=== PATIENT | female | born 1990 | race African-American/Black ===

== ENCOUNTER 2022-09-14 21:37 | Emergency (ER) | payer MEDICAID, SELFPAY ==
[2022-09-14 21:44] VITALS: BP 141/95; PULSE 79; RESP 16; TEMP 36.6; O2SAT 98; BMI 28.3
--- NOTE | 2022-09-17 07:15 | ED.SKABFB ---
HPI - Skin/Abscess/Foreign Bdy General Chief complaint: Skin/Abscess/Foreign Body Stated complaint: Reoccuring hives on neck/head Time Seen by Provider: 09/14/22 22:11 History of Present Illness HPI narrative: 32-year-old young woman presenting to the emergency department with concern of itchy rash somewhat generalized that has been recurring over the last 3 weeks. She is 4 months . Is breast-feeding. Sounds like this is going well. Has been trying diphenhydramine for this rash and does appear to control things. Recurred again today about 30 minutes prior to arrival in the emergency department. She has no sensation of throat tightness or closure or difficulty breathing. There are no particular exposures. She has been eliminating some things in her diet it sounds like in an effort to identify a potential cause. No history of asthma or particular allergies. No fevers. No nausea. Related Data Home Medications Medication Instructions Recorded Confirmed vit no.95-ferrous 1 tab PO DAILY 09/14/22 09/14/22 fumarate 28 mg-folic acid 800 mcg tablet ( Multivitamins) Allergies Allergy/AdvReac Type Severity Reaction Status Date / Time No Known Drug Allergies Allergy Verified 09/14/22 21:43 Review of Systems Status of ROS: Reports: 6 or more systems reviewed and unremarkable except as noted in History and below PFSH PFS Social History Smoking Status: Never smoker Do you use any of these nicotine containing products: None Second hand tobacco smoke exposure: No How often do you have a drink containing alcohol: never How often do you have six or more drinks on one occasion: Never AUDIT-C Alcohol total score: 0 Non-prescribed substance use: denies use service: No Exam Narrative: Exam Narrative: Pleasant. NAD. Breathing easily. Oropharynx is moist, otherwise unremarkable. Neck supple without lymphadenopathy. Lungs are clear. Heart with regular rate and rhythm without murmur rub or gallop. Was scratching little bit is I enter the room. Skin is warm and dry. I do not see or care eruptions at this point. There is some mild erythema at the right antecubital fossa. Other areas that seemed to have been involved also the legs. No edematous change or erythema otherwise of the skin. Const: Documenting provider has reviewed patient's vital signs: yes Course Vital Signs Vital signs: Initial Vital Signs Temperature 97.9 F 09/14/22 21:44 Temperature Source Temporal Artery Scan 09/14/22 21:44 Pulse Rate 79 09/14/22 21:44 Respiratory Rate 16 09/14/22 21:44 Blood Pressure 141/95 H 09/14/22 21:44 Blood Pressure Mean 110 09/14/22 21:44 Pulse Oximetry 98 09/14/22 21:44 Oxygen Delivery Method Room Air 09/14/22 21:44 Vital Signs Temperature 97.9 F 09/14/22 21:44 Pulse Rate 79 09/14/22 21:44 Respiratory Rate 16 09/14/22 21:44 Blood Pressure 141/95 H 09/14/22 21:44 Pulse Oximetry 98 09/14/22 21:44 Oxygen Delivery Method Room Air 09/14/22 21:44 Temperature 97.9 F 09/14/22 21:44 Pulse Rate 79 09/14/22 21:44 Respiratory Rate 16 09/14/22 21:44 Blood Pressure 141/95 H 09/14/22 21:44 Pulse Oximetry 98 09/14/22 21:44 Oxygen Delivery Method Room Air 09/14/22 21:44 MDM - Skin/Abscess/Foreign Bdy MDM Narrative Medical decision making narrative: There is subtle evidence of urticaria. Consistent with history as well. Unclear etiology though. No other alarming signs here on physical exam. I propose treating initially with course of prednisone. May require further laboratory investigation or diet diary. See patient discharge plan Discharge Plan Discharge Clinical Impression: Urticaria Patient Disposition: Home, Self-Care Condition: Stable Instructions: Urticaria (ED) Additional Instructions: Focus on hydration. Can use topical hydrocortisone if seems to help. Can take diphenhydramine for breakthrough itch. Famotidine could be a less sedating option longer-term but less effective for acute flares perhaps. Prednisone from [facility]. Take the prednisone as 40 mg daily for 3 days, then 20 mg daily for 4 days. Each of these doses you can split into morning and evening. I only said this because sometimes the half of the day where you do not take the medication you might feel more itch/have more hives. If once in the morning is effective you can take the entire dose at once. Return for any indication of breathing, sensation of throat tightness. Prescriptions: No Action PNV cmb#95-ferrous fumarate-FA [ Multivitamins] 28 mg iron- 800 mcg tablet 1 tab PO DAILY Stand Alone Forms: [employer] Info Instructions
== END 2022-09-14 23:48 | disposition home or self-care (01) ==
LOC: ED 23:34
PROVIDERS: Emergency Provider Family Medicine
DX: L50.9 Urticaria, unspecified (principal)
CPT/HCPCS: 99282; 99283

== ENCOUNTER 2023-07-06 19:24 | Emergency (ER) | payer MEDICAID, SELFPAY ==
[2023-07-06 19:32] VITALS: BP 149/94; PULSE 76; RESP 14; TEMP 36.8; O2SAT 94; BMI 30.2
[2023-07-06 19:44] LABS: Appearance Urine Cloudy (Clear); Bilirubin Urine Negative (Negative); Blood Urine 3+ (Negative); Color Urine Red (Yellow); Glucose Urine Negative (Negative); Ketones Urine Negative (Negative); Leukocyte Esterase Urine 1+ (Negative); Nitrite Urine Negative (Negative); Protein Urine 1+ (Negative); Urobilinogen Urine 0.2 (0.2-1.0); pH Urine 7.5 (5.0-8.5)
--- NOTE | 2023-07-06 19:48 | ED.ABDPAIN ---
HPI - Abdominal Pain General Time Seen by Provider: 19:48 Date Seen: 07/06/23 Chief Complaint: Abdominal Pain Stated Complaint: Sharp shooting abdmoninal pain-worse after eat Time Seen by Provider: 07/06/23 19:30 Source: patient, RN notes reviewed and old records reviewed Mode of arrival: ambulatory Limitations: no limitations History of Present Illness HPI narrative: 32-year-old female who comes in today with right-sided abdominal pain. This is been going on for 3 days. She says there is a dull ache in the right lower quadrant when she eats it radiates up to the right upper quadrant. No nausea vomiting. Says she has had diarrhea since she had her gallbladder removed. Prior up cholecystectomy as well. Denies any blood in the stools. Mild dysuria. Currently menstruating, denies possibility of . Related Data Home Medications Medication Instructions Recorded Confirmed vit no.95-ferrous 1 tab PO DAILY 09/14/22 09/14/22 fumarate 28 mg-folic acid 800 mcg tablet ( Multivitamins) Previous Rx's Medication Instructions Recorded cefdinir 300 mg capsule 300 mg PO BID #10 caps 07/06/23 Allergies Allergy/AdvReac Type Severity Reaction Status Date / Time No Known Drug Allergies Allergy Verified 07/06/23 19:38 Review of Systems Status of ROS Reports: 10 or more systems reviewed and unremarkable except as noted in History and below [facility] Social History Smoking Status: Never smoker Do you use any of these nicotine containing products: None Second hand tobacco smoke exposure: No How often do you have a drink containing alcohol: never How often do you have six or more drinks on one occasion: Never AUDIT-C Alcohol total score: 0 Non-prescribed substance use: denies use service: No Exam Narrative: Exam Narrative: General: Well-developed and well-nourished, no acute distress Head: Atraumatic and normocephalic Eyes: Pupils are equal reactive, extraocular motions intact, conjunctiva clear ENT: External nose and ears are normal, posterior pharynx without erythema or exudate Neck: No midline cervical tenderness, full spontaneous range of motion the neck, trachea midline, no adenopathy Heart: Regular rate and rhythm no murmurs or thrills Lungs: Clear to auscultation bilaterally without wheezes or crackles Abdomen: Soft, nontender, nondistended with active bowel sounds Musculoskeletal: No tenderness, deformity, or edema Neurologic: Awake, alert, and oriented x3, no gross focal neurologic deficits, cranial nerves intact as tested Psych: Mood and affect are appropriate Skin: No rashes Const: Vital Signs, click to edit/add: Vital Signs - 24 hr 07/06/23 19:32 Temperature 98.3 F Pulse Rate [Right Pulse Oximeter] 76 Respiratory Rate 14 Blood Pressure [Ri ght Upper Arm] 149/94 H Pulse Oximetry 94 Oxygen Delivery Me thod Room Air Course Course ED Course: Patient seen and examined, prior records are reviewed. Patient complains of right-sided abdominal pain, dull the most part but gets worse, sharp and radiating to the right upper quadrant after she eats. On exam here, comfortable with stable vital signs, no abdominal tenderness. Symptoms seem most consistent with a mono colitis, prior appendectomy and cholecystectomy so likelihood of right-sided intra-abdominal surgical emergency is low. Consider ovarian cyst as well. Labs ordered, consider CT based on lab findings and clinical course. Reevaluation(s) Time of Reevaluation #1: 20:19 Reevaluation #1: Labs ordered and independently interpreted by me, normal CBC. Urinalysis with blood but large number white cells relative to number of red cells, patient is menstruating but concern for possible infection. With hematuria without large number cells, this could represent upper tract bleeding such as from a stone. CT scan is ordered. Time of Reevaluation #2: 21:12 Reevaluation #2: CT scan independently interpreted by me does not demonstrate any ureteral calculus, hydronephrosis, hydroureter. Move use of will bladder wall thickening which in conjunction with urinalysis is consistent with urinary tract infection. Patient was started on Omnicef for this and discharged. Vital Signs Vital signs: Initial Vital Signs Temperature 98.3 F 07/06/23 19:32 Temperature Source Temporal Artery Scan 07/06/23 19:32 Pulse Rate 76 07/06/23 19:32 Pulse Rhythm Regular 07/06/23 19:32 Pulse Strength 3+ Normal 07/06/23 19:32 Respiratory Rate 14 07/06/23 19:32 Blood Pressure 149/94 H 07/06/23 19:32 Blood Pressure Mean 112 H 07/06/23 19:32 Blood Pressure Position Sitting 07/06/23 19:32 Pulse Oximetry 94 07/06/23 19:32 Oxygen Delivery Method Room Air 07/06/23 19:32 Vital Signs Temperature 98.3 F 07/06/23 19:32 Pulse Rate 76 07/06/23 19:32 Respiratory Rate 14 07/06/23 19:32 Blood Pressure 149/94 H 07/06/23 19:32 Pulse Oximetry 94 07/06/23 19:32 Oxygen Delivery Method Room Air 07/06/23 19:32 Temperature 98.3 F 07/06/23 19:32 Pulse Rate 76 07/06/23 19:32 Respiratory Rate 14 07/06/23 19:32 Blood Pressure 149/94 H 07/06/23 19:32 Pulse Oximetry 94 07/06/23 19:32 Oxygen Delivery Method Room Air 07/06/23 19:32 MDM - Abdominal Pain Lab Data Labs: Lab Results 07/06/23 07/06/23 Range/Units 19:34 20:02 WBC 5.94 (4.50-11.00) K/uL RBC 4.76 (4.00-5.20) m/uL Hgb 12.7 (12.0-16.0) gm/dL Hct 38.6 (33.0-51.0) % MCV 81 (80-100) fL MCH 27 (26-34) pg MCHC 33 (32-36) gm/dL RDW Coeff of Lana 12.7 (11.5-15.5) % Plt Count 216 (140-440) K/uL Neut % (Auto) 41.4 L (42.0-72.0) % Lymph % (Auto) 48.1 H (20-44) % [place] % (Auto) 6.4 (0.0-11.0) % Eos % (Auto) 3.9 (0.0-7.0) % Baso % (Auto) 0.2 (0.0-3.0) % Neut # (Auto) 2.50 (1.7-7.0) K/uL Lymph # (Auto) 2.90 (0.90-2.90) K/uL [place] # (Auto) 0.40 (0.00-0.90) K/UL Eos # (Auto) 0.23 (0.00-0.50) K/uL Baso # (Auto) 0.01 (0.00-0.30) K/uL Abs Immat Gran (auto) 0.00 (0.00-0.30) K/uL Imm/Tot Granulo (auto) 0.0 % Sodium 141 (135-149) mmol/L Potassium 3.2 L (3.6-5.1) mmol/L Chloride 107 (96-114) mmol/L Carbon Dioxide 28 (20-32) mmol/L Anion Gap 6 L (7-15) mEq/L BUN 12 (5-24) mg/dL Creatinine 0.6 (0.5-1.5) mg/dL Estimated Creat Clear 102.52 Estimated GFR 123 ml/min Glucose 107 (60-115) mg/dL Calcium 9.4 (8.4-10.6) mg/dL Total Bilirubin 0.2 (0.1-1.5) mg/dL Direct Bilirubin 0.0 (0.0-0.5) mg/dL AST 31 (12-35) U/L ALT 34 (4-35) U/L Alkaline Phosphatase 54 (40-150) U/L C-Reactive Protein 0.6 (0.5-1.0) mg/dL Total Protein 8.3 (6.0-8.3) g/dL Albumin 4.6 (3.3-5.0) g/dL Lipase 99 (23-300) U/L Urine Color Red A (Yellow) Urine Appearance Cloudy A (Clear) Urine pH 7.5 (5.0-8.5) Ur Specific Weinert 1.020 (1.000-1.030) Urine Protein 1+ A (Negative) Urine Glucose (UA) Negative (Negative) Urine Ketones Negative (Negative) Urine Blood 3+ A (Negative) Urine Nitrite Negative (Negative) Urine Bilirubin Negative (Negative) Urine Urobilinogen 0.2 (0.2-1.0) Ur Leukocyte Esterase 1+ A (Negative) Urine RBC 2-5 A (0-2) Urine WBC 25-50 A (0-5) Ur Squamous Epith Cells Few (None-Few) Urine Bacteria Few A (None) Discharge Plan Discharge Clinical Impression: UTI (urinary tract infection), uncomplicated Patient Disposition: Home, Self-Care Condition: Stable Instructions: Urinary Tract Infection in Women (DC) Additional Instructions: Take antibiotics as prescribed starting tomorrow Activity Level: No Restrictions Discharge Diet: Regular Prescriptions: New cefdinir 300 mg capsule 300 mg PO BID Qty: 10 0RF No Action PNV cmb#95-ferrous fumarate-FA [ Multivitamins] 28 mg iron- 800 mcg tablet 1 tab PO DAILY Follow Up/Referrals: Provider,Not a Local [Primary Care Provider] - Stand Alone Forms: [employer] Info Instructions
[2023-07-06 19:59] LABS: Bacteria Urine Few; Squamous Epithelial Cell Urine Few (None-Few); WBC Urine 25-50 (0-5)
[2023-07-06 20:11] LABS: Basophils Absolute Auto 0.01 K/uL (0.00-0.30); Basophils Percent Auto 0.2 % (0.0-3.0); Eosinophils Absolute Auto 0.23 K/uL (0.00-0.50); Eosinophils Percent Auto 3.9 % (0.0-7.0); Hematocrit 38.6 % (33.0-51.0); Hemoglobin* 12.7 gm/dL (12.0-16.0); Lymphocytes Percent Auto 48.1 % (20-44); Mean Corpuscular HGB Conc 33 gm/dL (32-36); Mean Corpuscular Hemoglobin 27 pg (26-34); Mean Corpuscular Volume 81 fL (80-100); Monocytes Percent Auto 6.4 % (0.0-11.0); Neutrophils Percent Auto 41.4 % (42.0-72.0); Platelet Count* 216 K/uL (140-440); RDW Coefficient of Variation % 12.7 % (11.5-15.5); Red Blood Count 4.76 m/uL (4.00-5.20); White Blood Count* 5.94 K/uL (4.50-11.00)
--- NOTE | 2023-07-06 20:11 | CRLHL7_ITS ---
For Patients: As a result of the Century Cures Act, medical imaging exams and procedure reports are released immediately into your electronic medical record. You may view this report before your referring provider. If you have questions, please contact your health care provider. INDICATION: Right abdominal pain, hematuria, question ureteral stone. TECHNIQUE: CT of the abdomen and pelvis acquired without intravenous contrast. Coronal and sagittal reconstructions. COMPARISON: None. FINDINGS: Liver: Unremarkable. Gallbladder and bile ducts: Cholecystectomy. No biliary dilation. Spleen: Unremarkable. Pancreas: Unremarkable. Adrenal glands: Unremarkable. Kidneys, Ureters, and Bladder: No hydronephrosis or ureteral dilation. No obstructing urinary calculi identified. Mild circumferential bladder wall thickening. Reproductive structures: Unremarkable. GI tract/Peritoneum: No small bowel dilation. Moderate amount of stool throughout the colon. The appendix is not identified, and there are surgical clips in the right lower quadrant suggesting prior appendectomy. Trace free fluid in pelvis is likely physiologic. No intraperitoneal free air. Vasculature: Abdominal aorta is normal in caliber. Lymph nodes: No lymphadenopathy. Abdominal wall: Rectus diastasis. Scarring in the lower anterior abdominal wall. Bones: Small sclerotic lesion in the L1 vertebral body likely represents a bone island. Lower chest: Unremarkable. IMPRESSION: 1. No hydronephrosis or obstructing urinary calculi. 2. Mild bladder wall thickening. Correlate with urinalysis. 3. No other acute findings in the abdomen or pelvis on this noncontrast exam. Please note that all CT scans at this facility use dose modulation, iterative reconstruction, and/or weight-based dosing when appropriate to reduce radiation dose to as low as reasonably achievable. Dictated by Jenny Morse MD @ 07/06/2023 9:11:57 PM (Electronically Signed)
[2023-07-06 20:17] LABS: Slide Review Reflex No
[2023-07-06 20:24] LABS: Chloride* 107 mmol/L (96-114); Potassium* 3.2 mmol/L (3.6-5.1); Sodium* 141 mmol/L (135-149)
[2023-07-06 20:25] LABS: Albumin* 4.6 g/dL (3.3-5.0)
[2023-07-06 20:27] LABS: Anion Gap 6 mEq/L (7-15); Blood Urea Nitrogen* 12 mg/dL (5-24); Carbon Dioxide* 28 mmol/L (20-32); Creatinine* 0.6 mg/dL (0.5-1.5); Est. Creatinine Clearance* 102.52; Estimated Glomerular Filt Rate 123 ml/min
[2023-07-06 20:28] LABS: Alkaline Phosphatase* 54 U/L (40-150); Aspartate Amino Transferase* 31 U/L (12-35); Bilirubin Total* 0.2 mg/dL (0.1-1.5); Calcium* 9.4 mg/dL (8.4-10.6); Glucose* 107 mg/dL (60-115); Lipase* 99 U/L (23-300); Total Protein* 8.3 g/dL (6.0-8.3)
[2023-07-06 20:29] LABS: Alanine Aminotransferase* 34 U/L (4-35)
[2023-07-06 20:31] LABS: C Reactive Protein* 0.6 mg/dL (0.5-1.0)
== END 2023-07-06 21:33 | disposition home or self-care (01) ==
PROVIDERS: Emergency Provider Family Medicine
DX: N39.0 Urinary tract infection, site not specified (principal)
CPT/HCPCS: 36415; 74176; 80048; 80076; 81001; 81025; 83690; 85025; 86140; 87086; 87186; 99284

== ENCOUNTER 2024-03-10 17:49 | Emergency (ER) | payer OTHER, SELFPAY ==
[2024-03-10 17:55] VITALS: BP 120/81; PULSE 84; RESP 14; TEMP 37.1; O2SAT 97; BMI 29.3
--- NOTE | 2024-03-10 18:08 | ED.GENADULT ---
HPI - General Adult General Chief complaint: Cough Stated complaint: Cough, short of breath Time Seen by Provider: 03/10/24 17:51 History of Present Illness HPI narrative: This 33-year-old female comes in reporting persistent cough with associated chest pain when taking a deep breath and coughing. She was diagnosed with COVID about a week ago and states that her symptoms began about 10 days ago. She arrives here with normal vital signs. She states that she has been taking Mucinex for an attempt to relieve her persistent cough. Related Data Previous Rx's ?Medication ?Instructions ?Recorded acetaminophen 300 mg-codeine 30 mg 1 tab PO Q6H PRN pain #15 tabs 03/10/24 tablet methylprednisolone 4 mg tablets in See Rx Instructions PO .COMPLEX 03/10/24 a dose pack (Medrol (Ricky)) #21 ea Allergies Allergy/AdvReac Type Severity Reaction Status Date / Time No Known Drug Allergies Allergy Verified 03/10/24 17:54 Review of Systems Status of ROS: Reports: 10 or more systems reviewed and unremarkable except as noted in History and below Narrative: Constitutional: No fevers, no weight gain or loss. Eyes: No discharge. No vision changes. HENT: No congestion, no sore throat, no ear pain. Cardiovascular: No palpitations. Respiratory: No shortness of breath, no wheezes. Frequent nonproductive cough. Gastrointestinal: No abdominal pain, no vomiting, no diarrhea. Genitourinary: No dysuria, no hematuria. Musculoskeletal: Normal range of motion. Skin: No rashes, no pruritis. Neurological: No dizziness, weakness, sensory change, speech change. Endo/Heme/Allergies: No bruising or bleeding. No polydipsia. Pysch: no suicidality, no anxiety, no insomnia. All other systems reviewed and are negative. [facility] Social History Smoking Status: Never smoker Do you use any of these nicotine containing products: None Second hand tobacco smoke exposure: No How often do you have a drink containing alcohol: never How often do you have six or more drinks on one occasion: Never AUDIT-C Alcohol total score: 0 Non-prescribed substance use: denies use service: No Exam Narrative: Exam Narrative: Constitutional: Well-developed, well-nourished, no acute distress. HEENT: Normocephalic, atraumatic. Neck: Normal range of motion. Nontender. Supple. Heart: Regular. No murmurs. Normal rate. Intact distal pulses. Lungs: Clear to auscultation. No chest discomfort. No wheezes, rhonchi, or rales. Abdomen: Normal bowel sounds. Nontender. No rebound tenderness. Genitalia: Deferred. Back: No midline tenderness. Normal range of motion. Extremities: Normal range of motion. No injury. Skin: Intact. No rash. Warm. No erythema or pallor. Neurologic: No altered sensation. No weakness. Alert and oriented. Psychiatric: No suicidality. No anxiety or depression. No insomnia. Nursing notes and vitals signs are reviewed. Const: Vital Signs, click to edit/add: Vital Signs - 24 hr 03/10/24 17:55 Temperature 98.7 F Pulse Rate [Pulse Oximeter] 84 Respiratory Rate 14 Blood Pressure [Ri ght Upper Arm] 120/81 Pulse Oximetry 97 Oxygen Delivery Me thod Room Air Course Vital Signs Vital signs: Initial Vital Signs Temperature 98.7 F 03/10/24 17:55 Temperature Source Temporal Artery Scan 03/10/24 17:55 Pulse Rate 84 03/10/24 17:55 Pulse Rhythm Regular 03/10/24 17:55 Respiratory Rate 14 03/10/24 17:55 Blood Pressure 120/81 03/10/24 17:55 Blood Pressure Mean 94 03/10/24 17:55 Blood Pressure Position Sitting 03/10/24 17:55 Pulse Oximetry 97 03/10/24 17:55 Oxygen Delivery Method Room Air 03/10/24 17:55 Vital Signs Temperature 98.7 F 03/10/24 17:55 Pulse Rate 84 03/10/24 17:55 Respiratory Rate 14 03/10/24 17:55 Blood Pressure 120/81 03/10/24 17:55 Pulse Oximetry 97 03/10/24 17:55 Oxygen Delivery Method Room Air 03/10/24 17:55 Temperature 98.7 F 03/10/24 17:55 Pulse Rate 84 03/10/24 17:55 Respiratory Rate 14 03/10/24 17:55 Blood Pressure 120/81 03/10/24 17:55 Pulse Oximetry 97 03/10/24 17:55 Oxygen Delivery Method Room Air 03/10/24 17:55 Medical Decision Making MDM Narrative Medical decision making narrative: This patient comes in with persistent cough related to COVID infection. She has a normal exam and vital signs are normal. I did discuss the option of doing labs and imaging but in a process of shared decision making this was declined for now. The patient did receive prescription for Medrol Dosepak and Tylenol 3 for symptomatic relief. Discharge Plan Discharge Clinical Impression: COVID-19 Patient Disposition: Home, Self-Care Condition: Unchanged Additional Instructions: Take medications as needed and directed. Use [id number] medicines also as directed. Follow up with MD return if worsening. Prescriptions: New acetaminophen-codeine 300-30 mg tablet 1 tab PO Q6H PRN (Reason: pain) Qty: 15 0RF methylprednisolone [Medrol (Ricky)] 4 mg tablets,dose pack See Rx Instructions .ROUTE .COMPLEX Qty: 21 0RF Rx Instructions: orally per package directions Follow Up/Referrals: Provider,Not a Local [Primary Care Provider] - Stand Alone Forms: [employer] Info Instructions
--- OUTSIDE RECORDS SUMMARY | 2024-03-10 18:21 | XMS_ITS | Encounter Summary ---
Author Organization [facility] Address [address] [place] [id number] Care Team Providers Care Wood Treating Inspector Name Role Phone Betty Pederson [facility] PATE Unavailable [facility] Primary Sc re Provider Patrick Ayon DO Unavailable [phone] Patrick Ayon DO Unavailable [phone] Tarik Louie MD Unavailable Loretta Ayon MD Unavailable [phone] Tarik Louie MD Unavailable Cristopher Koroma MD Unavailable [phone] Encounter Details Date Type Department Care Team (Latest Contact Info) Description 12/07/2023 Travel Social History Tobacco Use Types Packs/Day Years Used Date Smoking Tobacco: Never Passive Smoke Exposure: Never Smokeless Tobacco: Never Alcohol Use Standard Drinks/Week Comments No 0 (1 standard drink = 0.6 oz pur e alcohol) PHQ-2 Answer Date Recorded PHQ-2 Score 0 08/18/2023 [place] Depression Scale Answer Date Recorded Last EPDS Total Score Not on file 05/14/2022 The thought of harming myself has occurred to me . Never 05/14/2022 Adolescent Education Answer Date Record ed Getting School Help Needed Not on file 03/20 Food Insecurity Answer Date Recorded Within the past 12 months, d id you worry that your food would run out before you got money to buy more? No 04/20/2023 Within the past 12 months, d id the food you bought just not last and you didn? t have money to get more? No 04/20/2023 Housing Stability Answer Date Recorded Do you have housing? (Rosa dempsey is defined as stable permanent housing and does not include staying ouside in a car, in a tent, in an abandoned building, in an overnight long-term, or couch-surfing.) Yes 04/20/2023 Are you worried about losing your housing? No 04/20/2023 Financial Resource Strain Answer Date R ecorded Within the past 12 months, h ave you or your family members you live with been unable to get utilities (heat, electricity) when it was really needed? No 04/20/2023 Transportation Needs Answer Date Record ed Within the past 12 months, h as lack of transportation kept you from medical appointments, getting your medicines, non-medical meetings or appointments, work, or from getting things that you need? No 04/20/2023 Interpersonal Safety Answer Date Record ed Do you feel physically and e motionally safe where you currently live? Yes 04/20/2023 Within the past 12 months, h ave you been hit, slapped, kicked or otherwise physically hurt by someone? No 04/20/2023 Within the past 12 months, h ave you been humiliated or emotionally abused in other ways by your partner or ex-partner? No 04/20/2023 Sex and Gender Information Value Date Recorded Sex Assigned at Female 02/03/2019 8:53 AM CDT Gender Identity Female 02/03/2019 8:53 AM CDT Sexual Orientation Straight 02/03/2019 8: 53 AM CDT documented as of this encounter Plan of Treatment Not on file documented as of this encounter Visit Diagnoses Not on filedocumented in this encounter Additional Health Concerns Assessment Noted Time PHQ-9 Depression Total Score: 4 07/21/19 23 11:38 AM ADMITTED ATTORNEYS documented as of this encounter Care Teams Wood Treating Inspector Relationship Specialty Start Date End Date Clinic - [facility] [address] [place] [address] PCP - General 07/21/[address] [facility] [address] Emotional Support Teacher Dietitian, Registered 11/28/20 Patrick Ayon DO [address] [place] [id number] Assigned PCP 09/19/22 01/10/24 Patrick Ayon DO [address] [place] [id number] Referring Physician Family Medicine 09/21/22 Tarik Louie MD [address], [address] [place] [address] Allergy & Immunology 09/21/22 Loretta Ayon MD [address] [place] [address] Assigned OBGYN Provider 10/24/22 Tarik Louie MD [address] [place] [address] Assigned Allergy Provider 11/11/23 Cristopher Koroma MD [address] [place] [address] Assigned Surgical Provider 06/12/23 documented as of this encounter
--- OUTSIDE RECORDS SUMMARY | 2024-03-10 18:21 | XMS_ITS | Encounter Summary ---
Author Organization [facility] Address [address] [place] [address] Care Team Providers Care Food And Drug Inspector Name Role Phone Betty Pederson Libertad PATE Unavailable [phone] [facility] Ca re Provider Patrick Ayon DO Unavailable [phone] Patrick Ayon DO Unavailable [phone] Tarik Louie MD Unavailable Loretta Ayon MD Unavailable [phone] Tarik Louie MD Unavailable Cristopher Koroma MD Unavailable Reason for Visit * Reason Comments Health Maintenance Lab follow up. Encounter Details Date Type Department Care Team ([facility] Contact Info) Description 12/09/2023 9:00 AM CDT Virtual Visit [facility] [address] [place] [address] S, [address] [phone] Jennifer Travis PA-C [address] [place] [address] DR Ata RHODES [place] [id number] Elevated cholesterol (Primary Dx); Diarrhea, unspecified type; Vitamin D deficiency Social History Tobacco Use Types Packs/Day Years Used Date Smoking Tobacco: Never Passive Smoke Exposure: Never Smokeless Tobacco: Never Alcohol Use Standard Drinks/Week Comments No 0 (1 standard drink = 0.6 oz pur e alcohol) PHQ-2 Answer Date Recorded PHQ-2 Score 0 08/18/2023 [place] Depression Scale Answer Date Recorded Last EPDS [...] Answer Date Recorded Do you have housing? (Bonnyin g is defined as stable permanent housing and does not include staying ouside in a car, in a tent, in an abandoned building, in an overnight penitentiary, or couch-surfing.) Yes 04/20/2023 Are you worried [...] AM CDT documented as of this encounter Progress Notes * Jennifer Beach PA-C - 12/09/2023 9:00 AM CDT Tsering is a 33 year old who is being evaluated via a billable telephone visit. What phone number would you like to be contacted at? [phone] How would you like to obtain your AVS? MyChart Originating Location (pt. Location): Home Distant Location (provider location): On-site Assessment & Plan Diarrhea, unspecified type Elevated cholesterol Patient currently being treated by GI for diarrhea with cholestyramine powder. GI provider noted elevation in patient's lipid panel and referred her for possible treatment with medication. Unfortunately, I do not have the lab work on file here. Patient already to come in to have her vitamin D levelrechecked, educated she can have her fasting lipid checked at the same time. Will review and make recommendations once results are in. - PRIMARY CARE FOLLOW-UP SCHEDULING - Lipid panel reflex to direct LDL Fasting Vitamin D deficiency Vitamin D level on 08/17/23 was low. Started on 10,000 international unit(s) daily. She is needing lab recheck at this time. Will adjust vitamin D supplement pending lab results. The longitudinal plan of care for the diagnosis(es)/condition(s) as documented were addressed during this visit. Due to the added complexity in care, I will continue to support Tsering in the subsequent management and with ongoing continuity of care. Subjective Tsering is a 33 year old, presenting for the following health issues: Health Maintenance (Lab follow up. ) 12/09/2023 8:53 AM Additional Questions Roomed by Padma Scott LPN History of Present Illness Reason for visit: Lab follow up She eats 4 or more servings of fruits and vegetables daily.She consumes 3 sweetened beverage(s) daily.She exercises with enough effort to increase her heart rate 10 to 19 minutes per day. She exercises with enough effort to increase her heart rate 3 or less days per week. She is taking medications regularly. Vitamin D deficiency: Vitamin D level checked on 08/17/23. Patient educated to start taking a vitamin D supplement and started taking 10,000 international unit(s) daily. Seen by GI doctor for chronic diarrhea. Ended up having a colonoscopy done. A polyp was removed. Was H. Pylori positive and treated for this. Will be retested for H. Pylori in a few months. 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 Patient now taking cholestryramine powder 4 gm once daily which significantly helps control the diarrhea. GI doctor checked her cholesterollevels which was 219 and recommended potentially starting a lipid lowering medication. Unable to see these labs in record. Review of Systems Constitutional, HEENT, cardiovascular, pulmonary, gi and gu systems are negative, except as otherwise noted. Objective Vitals: No vitals were obtained today due to virtual visit. Physical Exam General: Alert and no distress //Respiratory: No audible wheeze, cough, or shortness of breath // Psychiatric: Appropriate affect, tone, and pace of words No results found for this or any previous visit (from the past 24 hour(s)). Phone call duration: 10 minutes Signed Electronically by: Jennifer Beach PA-C documented in this encounter Plan of Treatment Not on file documented as of this encounter Results * (ABNORMAL) Lipid panel reflex to direct LDL Fasting (12/21/2023 9:14 AM CDT) Cholesterol 175 <200 mg/dL 12/21/2023 9:29 PM CDT [facility] Triglycerides 79 <150 mg/dL 12/21/2023 9:29 PM CDT [facility] Direct Measure HDL 43(L) >=50 mg/dL 12/21/2023 9:29 PM CDT [facility] LDL Cholesterol Calculated 116(H) <=100 mg/dL 12/21/2023 9:29 PM CDT [facility] Non HDL Cholesterol 132(H) <130 mg/dL 12/21/2023 9:29 PM CDT [facility] Patient Fasting > 8hrs? Yes 12/21/2023 9:29 PM CDT [facility] Blood BLOOD SPECIMEN / Unknown Venipuncture / Unknown 12/21/2023 9:14 AM CDT 12/21/2023 9:14 AM CDT Narrative [facility] - 12/21/2023 9:29 PM CDT Cholesterol Desirable: ??<200 mg/dL Triglycerides Normal: ??Less than 150 mg/dL Borderline High: ??150-199 mg/dL High: ??200-499 mg/dL Very High: ??Greater than or equal to 500 mg/dL Direct Measure HDL Female: ??Greater than or equal to 50 mg/dL Male: ??Greater than or equal to 40 mg/dL LDL Cholesterol Desirable: ??<100mg/dL Above Desirable: ??100-129 mg/dL Borderline High: ??130-159 mg/dL High: ??160-189 mg/dL Very High: ??>= 190 mg/dL Non HDL Cholesterol Desirable: ??130 mg/dL Above Desirable: ??130-159 mg/dL Borderline High: ??160-189 mg/dL High: ??190-219 mg/dL Very High: ??Greater than or equal to 220 mg/dL Jennifer Travis PA-C LAB - BLOOD ORDERABL ES [facility] Core Lab [address] [facility], [address] [place] [phone] documented in this encounter Visit Diagnoses Diagnosis Elevated cholesterol- Primary Pure hypercholesterolemia Diarrhea, unspecified type Vitamin D deficiency Unspecified vitamin D deficiency documented in this encounter Additional Health Concerns Assessment Noted Time PHQ-9 Depression Total Score: 4 07/21/19 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 documented as of this encounter Care Teams Food And Drug Inspector Relationship Specialty Start Date End Date Clinic - [facility] [id number] [place] [id number] PCP - General 07/21/[address] [place] [address] Hoist Worker Dietitian, Registered 11/28/20 Patrick Ayon DO [address] [place] [address] Assigned PCP 09/19/22 01/10/24 Patrick Ayon DO [address] [place] [address], [place] [address] Referring Physician Family Medicine 09/21/22 Tarik Louie MD [address], [address] [place] [address] Allergy & Immunology 09/21/22 Loretta Ayon MD [address] [place] [address] Assigned OBGYN Provider 10/24/22 Tarik Louie MD [address] [place] [address] Assigned Allergy Provider 11/11/23 Cristopher Koroma MD [address] [place] [address] Assigned Surgical Provider 06/12/23 documented as of this encounter
--- OUTSIDE RECORDS SUMMARY | 2024-03-10 18:21 | XMS_ITS | Referral Summary ---
Author Organization [facility] Address [address] [place] [address] Care Team Providers Care Business Analyst Intern Name Role Phone Betty Pederson RD Unavailable [facility] Primary Ca re Provider Patrick Ayon DO Unavailable Tarik Louie MD Unavailable Loretta Ayon MD Unavailable [phone] Tarik Louie MD Unavailable Cristopher Koroma MD Unavailable [phone] Jennifer Travis PA-C Unavailable Encounters Date Type Department Care Team Description 12/21/2023 Travel 12/21/2023 9:15 AM CDT Lab [facility] [address] [place] [address] Vitamin D deficiency; Diarrhea, unspecified type; Elevated cholesterol 12/09/2023 9:00 AM CDT Virtual Visit [facility] [address] [place] [address] S, [address] [place] [address] Jennifer Travis PA-C Elevated cholesterol (Primary Dx); Diarrhea, unspecified type; Vitamin D deficiency from Last 3 Months Allergies No known active allergies Medications Medication Sig Dispensed Refills Start Date End Date Status estradiol (ESTRACE) 0.1 MG/GM vaginal creamIndications:F issure of genital labia Apply a pea sized amount to the vagina daily for the first 14 days then every other day ongoing until you are done breast feeding 42.5 g 3 10/21/2022 Active loperamide (IMODIUM A-D) 2 MG tabletIndications: Diarrhea, unspecified type Take 1 tablet (2 mg) by mouth 4 times daily as needed for diarrhea 120 tablet 3 08/17/2023 Active ondansetron (ZOFRAN) 4 MG tabletIndications: Nausea Take 1 tablet (4 mg) by mouth every 8 hours as needed for nausea 15 tablet 08/20/2023 Active cholestyramine light (PREVALITE) 4 GM powder TAKE 0.5 SCOOP BY MOUTH EVERY DAY DISSOLVED IN 2 TO 6 OUNCES OF WATER OR NONCARBONATED BEVERAGE BEFORE MEALS 09/17/2023 Active colestipol (COLESTID) 1 g tablet 09/03/2023 Active promethazine (PHENERGAN) 25 MG tablet TAKE 1 TABLET BY MOUTH EVERY 6 TO 8 HOURS NEEDED FOR NAUSEA 09/16/2023 Active clobetasol (TEMOVATE) 0.05 % external ointmentIndication s:Pruritus of vagina,Genital labial fissure Apply topically 3 times daily as needed to affected area for up to 14 days 60 g 2 09/28/2023 Active vitamin D3 (CHOLECALCIFEROL) 250 mcg (35330 units) capsule Take 1 capsule by mouth daily Active Hospital, Clinic, or Other Facility Administered Medication Ordered Dose Route Frequency Start Date End Date Status medroxyPROGESTERone (DEPO-PROVERA) injection 150 mgIndications:Encounte r for initial prescription of injectable contraceptive,General counselling and advice on contraception 150 mg IM EVERY 3 MONTHS 10/21/2022 Acti ve medroxyPROGESTERone (DEPO-PROVERA) injection 150 mgIndications:Encounte r for surveillance of other contraceptive 150 mg IM EVERY 3 MONTHS 12/01/2023 11/25/2024 A ctive Active Problems Problem Noted Date Diagnosed Date Abnormal uterine bleeding 08/17/2023 Bladder dysfunction 08/17/2023 Full incontinence of feces 08/17/2023 Pain in female genitalia on intercourse 08/17/19 Pelvic floor dysfunction 08/17/2023 Pruritus of vagina 08/17/2023 Scar conditions and fibrosis of skin 08/17/2023 Voiding dysfunction 08/17/2023 Noninflammatory disorder of vulva 08/17/2023 Cervical high risk HPV (human papillomavirus) te st positive 03/31/2023 Overview: 2015 NIL Pap 2019 NIL pap 03/31/23 NIL pap, + HR HPV (not 16 or 18). Plan cotest in 1 year due by 03/31/24 04/07/23 Pt notified by phone. 03/09/2024 Reminder MyChart Encounter for surveillance of other contraceptiv e 01/21/2023 Abdominal pain, epigastric 07/19/2021 Acute left-sided low back pain with left-sided s ciatica 11/27/2020 Vitamin D deficiency 02/24/2019 Resolved Problems Problem Noted Date Diagnosed Date Resolved Date History of gestational diabe pablo mellitus (GDM) 08/17/2023 08/17/2023 History of gestational diabetes mellitus 08/17/2023 08/17/2023 Irregular periods 08/17/2023 08/17/2023 Missed period 08/17/2023 08/17/2023 Obesity affecting in first trimester 08/17/2023 08/17/2023 H/O section 05/12/2022 024 Gallstones 07/19/2021 08/17/2023 Acute pancreatitis, unspecif ied complication status, unspecified pancreatitis type 07/19/2021 Acute appendicitis with loca lized peritonitis without abscess, unspecified whether gangrene present, unspecified whether perforation present 02/20/2021 08/17/2023 Overview: Added automatically from request for surgery [id number] Encounter for triage in patient 01/29/2021 08/17/2023 Normal labor 01/29/2021 08/17/2023 IUD (intrauterine device) in place 09/02/2016 08/17/2023 NO ACTIVE PROBLEMS 08/05/2016 S/P 07/18/2016 08/05/2016 Labor and delivery indicatio n for care or intervention 07/17/2016 08/05/2016 Indication for care in labor or delivery 07/17/2016 08/05/2016 Group B streptococcal infect ion during 12/25/2015 08/05/2016 Supervision of normal 12/10/2015 08/05/2016 GBS (group B Streptococcus c vishal), +RV culture, currently 06/05/2011 12/10/2015 High-risk , young primigravida 12/18/2010 12/10/2015 Overview: Interested in implanon for contraception Immunizations Name Administration Dates Next Due COVID-19 Monovalent 18+ (Moderna) 06/19/2021 DTAP (<7y) 06/27/1997, 3,04/18/1992, 2,1991 HEPA 09/06/2007 HPV 09/06/2007 HepB 03/26/1998,08/22/1997,06/27/1997 Influenza (IIV3) PF 03/13/2011 MMR 05/13/2022(),06/27/1997,01/09/19 93 Meningococcal (Menomune??) 09/06/2007 Poliovirus, inactivated (IPV) 06/27/1997 ,01/09/1993,02/13/1992, 2 TDAP (Adacel,Boostrix) 04/14/2022,10/20/2011 TDAP Vaccine (Adacel) 06/17/2016 Varicella 09/06/2007,08/29/1997 Social History Tobacco Use Types Packs/Day Years Used Date Smoking Tobacco: Never Passive Smoke Exposure: Never Smokeless Tobacco: Never Tobacco Cessation:Counseling Given: No Alcohol Use Standard Drinks/Week Comments No 0 (1 standard drink = 0.6 oz pur e alcohol) PHQ-2 Answer Date Recorded PHQ-2 Score 0 08/18/2023 [place] Depression Scale Answer Date Recorded Last EPDS [...] in an abandoned building, in an overnight intermediate, or couch-surfing.) Yes 04/20/2023 Are you worried [...] Orientation Straight 02/03/2019 8: 53 AM CDT Last Filed Vital Signs Vital Sign Reading Time Taken Comments Blood Pressure 115/75 09/28/2023 2:47 PM CDT Pulse 87 09/28/2023 2:47 PM CDT Temperature 36.9 ??C (98.4 ??F) 09/28/2023 2:47 PM CD T Respiratory Rate 17 09/28/2023 2:47 PM CDT Oxygen Saturation 100% 09/28/2023 2:47 PM CDT Inhaled Oxygen Concentration - - Weight 73.5 kg (162 lb) 09/28/2023 2:47 PM CDT Height 154.9 cm (5' 1) 09/28/2023 2:47 PM CDT Body Mass Index 30.61 09/28/2023 2:47 PM CDT Plan of Treatment Not on file Procedures Procedure Name Priority Date/Time Associated Diagnosis Comments LIPID REFLEX TO DIRECT LDL PANEL Routine 12/21/2023 9:14 AM CDT Diarrhea, unspecified type Elevated cholesterol VITAMIN D DEFICIENCY SCREENING Routine 12/21/2023 9:14 AM CDT Vitamin D deficiency MA DIAGNOSTIC BILATERAL W/ ROGELIO Routine 04/21/2023 3:08 PM CDT Mass of left breast, unspecified quadrant HPV HIGH RISK TYPES DNA CERVICAL Routine 03/31/2023 2:58 PM CDT Screening for cervical cancer GYNECOLOGIC CYTOLOGY Routine 03/31/2023 2:58 PM CDT Screening for cervical cancer HIV 1&2 ANTIBODY (EXTERNAL RESULT) Routine 11/04/2021 12:00 PM CDT from Last 3 Months or Most Recently Relevant to Health Maintenance Results * Vitamin D Deficiency (12/21/2023 9:14 AM CDT) Vitamin D, Total (25-Hydroxy) 20 20 - 50 ng/mL 12/21/2023 6:48 PM CDT [facility] Comment:optimum levels Blood BLOOD SPECIMEN / Unknown Venipuncture / Unknown 12/21/2023 9:14 AM CDT 12/21/2023 9:14 AM CDT Narrative [facility] - 12/21/2023 6:48 PM CDT Season, race, dietary intake, and treatment affect the concentration of 06-meswdat-Xjfwszo D. Values may decrease during winter months and increase during summer months. Vitamin D determination is routinely performed by an immunoassay specific for 25 hydroxyvitamin D3. ??If an individual is on vitamin D2(ergocalciferol) supplementation, please specify 25 OH vitamin D2 and D3 level determination by LCMSMS test VITD23. Jennifer Travis PA-C LAB - BLOOD ORDERABL ES [facility] [facility] Lab [address] [facility]. [facility], [address] [place] [address], [facility] * (ABNORMAL) Lipid panel reflex to direct [...] LAB - BLOOD ORDERABL ES [facility] [facility] [address] [facility], [address] [place] [address] * MA Diagnostic Bilateral w/Rogelio (04/21/2023 3:08 PM CDT) Anatomical Region Laterality Modality Breast Bilateral Mammography Impressions 04/21/2023 3:22 PM CDT IMPRESSION: BI-RADS CATEGORY: 2 - Benign Finding(s). RECOMMENDED FOLLOW-UP: Clinical follow-up. The patient was given the results of the examination. BRIT CONRAD MD Narrative 04/21/2023 3:22 PM CDT Examination: Bilateral digital diagnostic mammography and digital breast tomosynthesis with computer aided detection, and focused ultrasound of the LEFT breast, 04/21/2023. Comparison: None History: Tender lump inferiorly in the LEFT breast. Patient is currently breast-feeding. She started antibiotics yesterday. BREAST DENSITY: Heterogeneously dense Findings: Bilateral mammography with digital breast tomosynthesis performed with a triangle-shaped marker inferiorly in the LEFT breast at the patient's palpable area of concern. Circumscribed oval mass is seen deep to the marker. No concerning mammographic/tomographic findings in the RIGHT breast. Focussed ultrasound of the inferior LEFT breast was performed. Benign skin associated cyst is seen at 7:00 9 cm from the nipple on the LEFT. There is a tract extending to the skin surface. Findings indicate an inflamed sebaceous cyst/epidermal inclusion cyst. Estefani Aguila APRN CARDIAC NURSE PRACTITIONER IMG MAMMOGRAPHY ORDERABLES * Pap screen with HPV - recommended age 30 - 65 years (03/31/2023 2:58 PM CDT) Interpretation Negative for Intraepithelial Lesion or Malignancy (NILM) 04/05/2023 10:37 AM CDT [facility] Comment Papanicolaou Test Limitations: Cervical cytology is a screening test with limited sensitivity, and regular screening is critical for cancer prevention. Pap tests are primarily effective for the diagnosis/prevent ion of squamous cell carcinoma, not adenocarcinoma or other cancers. 04/05/2023 10:37 AM CDT [facility] Specimen Adequacy Satisfactory for evaluation, endocervical/quiroz sformation zone component present 04/05/2023 10:37 AM CDT [facility] Clinical Information none 04/05/2023 10:37 AM CDT [facility] LMP/Menopause Date 03/22/2023 04/05/2023 10:37 AM CDT [facility] Reflex Testing Yes regardless of result 04/05/2023 10:37 AM CDT [facility] Previous Abnormal? No 04/05/2023 10:37 AM CDT [facility] Performing Labs The technical component of this testing was completed at [facility] 04/05/2023 10:37 AM CDT [facility] Brushing CERVIX UTERI STRUCTURE / Unknown Non-blood Collection / Unknown 03/31/2023 2:58 PM CDT 03/31/2023 3:02 PM CDT Loretta WILLETT - [facility]UEL [facility] Specialty Lab [address] [facility], [address] [id number], [facility] [phone] * (ABNORMAL) HPV High Risk Types DNA Cervical (03/31/2023 2:58 PM CDT) Other HR HPV Positive(A) Negative 04/07/2023 9:33 AM CDT [facility] HPV16 DNA Negative Negative 04/07/2023 9:33 AM CDT [facility] HPV18 DNA Negative Negative 04/07/2023 9:33 AM CDT [facility] FINAL DIAGNOSIS This patient's sample is positive for other HR HPV DNA (types 31, 33, 35, 39, 45, 51, 52, 56, 58, 59, 66 or 68), not HPV 16 or HPV 18 DNA. This result requires clinical correlation with concurrent cytology findings. This test was developed and its performance characteristics determined by the [facility], [facility]. It has not been cleared or approved by the FDA. The laboratory is regulated under CLIA as qualified to perform high-complexity testing. This test is used for clinical purposes. It should not be regarded as investigational or for research. METHODOLOGY: The Sharron Becki 4800 system uses automated extraction, simultaneous amplification of HPV (L1 region) and beta-globin, followed by real time detection of fluorescent labeled HPV and beta globin using specific oligonucleotide probes. The test specifically identifies types HPV 16 DNA and HPV 18 DNA while concurrently detecting the rest of the high risk types (31, 33, 35, 39, 45, 51, 52, 56, 58, 59, 66 or 68). COMMENTS: This test is not intended for use as a screening device for woman under age 30 with normal cervical cytology. Results should be correlated with cytologic and histologic findings. Close clinical followup is recommended. 04/07/2023 9:33 AM CDT [facility] Brushing CERVIX UTERI STRUCTURE / Unknown Non-blood Collection / Unknown 03/31/2023 2:58 PM CDT 04/06/2023 8:52 AM CDT Loretta Ayon MD LAB - BLOOD ORDERABL ES [facility] [address] [facility], [address] [place] [phone], [facility] [phone] * HIV-1 Antibody (External Result) (11/04/2021 12:00 PM CDT) HIV 1&2 Antibody (External) Nonreactive Nonreactive [facility] - LAUREN PINEDO 11/04/2021 12:0 0 PM CDT Cat Graham MD LAB - HIM EXTERNA L RESULT [facility] LAUREN PINEDO [facility] [address] [phone] from Last 3 Months or Most Recently Relevant to Health Maintenance Advance Directives For more information, please contact: [phone] * Full Code (Latest Code Status on File) Date Activated Date Inactivated Comments 05/12/2022 5:31 PM 05/14/2022 6:25 PM All basic and advanced life-sustaining interventions are performed as appropriate Question Answer Comments Code status determined by: Other (please documen t) * Full Code Date Activated Date Inactivated Comments 07/19/2021 9:56 PM 07/21/2021 7:31 PM All basic an d advanced life-sustaining interventions are performed as appropriate Question Answer Comments Code status determined by: Discussion with patie nt/ legal decision maker * Full Code Date Activated Date Inactivated Comments 01/29/2021 2:21 AM 01/31/2021 8:03 PM All basic an d advanced life-sustaining interventions are performed as appropriate Question Answer Comments Code status determined by: Discussion with patie nt/ legal decision maker Care Teams Business Analyst Intern Relationship Specialty Start Date End Date [facility] [address] [place] [address] PCP - General 07/21/[address] [place], [place] [address] Executive Meeting Manager Dietitian, Registered 11/28/20 Patrick Ayon DO [address] [place] [id number] Referring Physician Family Medicine 09/21/22 Tarik Louie MD [address], [address] [place], [place] [address] Allergy & Immunology 09/21/22 Loretta Ayon MD [address] [place], [place] [address] Assigned OBGYN Provider 10/24/22 Tarik Louie MD [address] [place] [address] Assigned Allergy Provider 11/11/23 Cristopher Koroma MD [address] [place] [address] Assigned Surgical Provider 06/12/23 Jennifer Travis PA-C [address] [facility] [place] [address] Assigned PCP 01/11/24
--- OUTSIDE RECORDS SUMMARY | 2024-03-10 18:21 | XMS_ITS | Encounter Summary ---
Author Organization [place] Address [address] [place] [address] Care Team Providers Care Histopathology Technician Name Role Phone Salena Lund MD Unavailable Betty Pederson RD Unavailable [facility] Primary Ca re Provider Christen Murphy MD Unavailable Salena Lund MD Unavailable Salena Lund MD Unavailable Patrick Ayon DO Unavailable [phone] Patrick Ayon DO Unavailable Tarik Louie MD Unavailable Patrick Ayon DO Unavailable Loretta Ayon MD Unavailable [phone] Tarik Louie MD Unavailable Patrick Ayon DO Unavailable Cristopher Koroma MD Unavailable Tarik Louie MD Unavailable Jennifer Travis PA-C Unavailable Encounter Details Date Type Department Care Team (Late st Contact Info) Description 08/08/2021 Tim Oreilly [facility] Surgery [place] [address] [place] [phone] Kimberley Alberts PA-C [address] [facility] [address] [place] [address] Social History Tobacco Use Types Packs/Day Years Used Date Smoking Tobacco: Never Smokeless Tobacco: Never Alcohol Use Standard Drinks/Week Comments No 0 (1 standard drink = 0.6 oz pur e alcohol) PHQ-2 Answer Date Recorded PHQ-2 Score 0 07/23/2020 [place] Depression Scale Answer Date Recorded [place] Depression Score 14 01/31/2021 Last EPDS Self Harm Result Not on file 01/31 Sex and Gender Information Value Date Recorded Sex Assigned at Female 02/03/2019 8:53 AM CDT Gender Identity Female 02/03/2019 8:53 AM CDT Sexual Orientation Straight 02/03/2019 8: 53 AM CDT COVID-19 Exposure Response Date Recorded In the last month, have you been in contact with someone who was confirmed or suspected to have Coronavirus / COVID-19? 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 Plan of Treatment Not on file documented as of this encounter Visit Diagnoses Not on filedocumented in this encounter Additional Health Concerns Infection Onset Date Last Indicated Resolved Time Rule Out COVID-19 02/11/2022 02/11/2022 02/12/2022 11:16 AM CDT Assessment Noted Time PHQ-9 Depression Total Score: 4 02/06/20 20 7:07 AM CDT documented as of this encounter Care Teams Histopathology Technician Relationship Specialty Start Date End Date Clinic - [facility] [address] [place] [address] PCP - General 07/21/21 [place] [address] [place] [address] Assigned PCP 08/04/20 01/23/[address] [place] [address] [employer] Limousine Dietitian, Registered 11/28/20 Christen Murphy MD [address] [place] [address] Assigned PCP 01/24/22 05/01/22 [place] [address] [place] [address] Assigned PCP 05/02/22 06/05/22 [place] [address] [place] [address] Assigned PCP 08/15/22 09/04/22 Patrick Ayon DO [address] [place] [address] Assigned PCP 09/19/22 01/10/24 Patrick Ayon DO [address] [place] [address] Referring Physician Family Medicine 09/21/22 Tarik Louie MD [address] [facility] [address] [place] [address] Allergy & Immunology 09/21/22 Patrick Ayon DO [address] [place] [address] Assigned PCP 09/05/22 09/18/22 Loretta Ayon MD [address] [place] [address] Assigned OBGYN Provider 10/24/22 Tarik Louie MD [address] [address] Assigned Allergy Provider 11/11/23 Patrick Ayon DO [address] [place], [place] [address] Assigned Pain Medication Provider 05/08/23 07/14/23 Cristopher Koroma MD [address] [place], [place] [address] Assigned Surgical Provider 06/12/23 Tarik Louie MD [address] [address] Assigned Allergy Provider 12/19/22 11/10/23 Jennifer Travis PA-C [address] [facility] [address] [address] Assigned PCP 01/11/24 documented as of this encounter
--- OUTSIDE RECORDS SUMMARY | 2024-03-10 18:21 | XMS_ITS | Encounter Summary ---
Author Organization [place] Address [address] [place] [address] Care Team Providers Care Pit And Auxiliaries Supervisor Name Role Phone Betty Pederson Libertad PATE Unavailable [facility] Primary Ca re Provider Patrick Ayon DO Unavailable Patrick Ayon DO Unavailable [phone] Tarik Louie MD Unavailable Loretta Ayon MD Unavailable [phone] Tarik Louie MD Unavailable Cristopher Koroma MD Unavailable Encounter Details Date Type Department Care Team (Latest Contact Info) Description 12/07/2023 9:30 AM CDT Allied Health/Nurse Visit [facility] [address] [place] [id number] Depo-Provera contraceptive status (Primary Dx) Social History Tobacco Use Types Packs/Day Years Used Date Smoking Tobacco: Never Passive Smoke Exposure: Never Smokeless Tobacco: Never Alcohol Use Standard Drinks/Week Comments No 0 (1 standard drink = 0.6 oz pur e alcohol) PHQ-2 Answer Date Recorded PHQ-2 Score 0 08/18/2023 [place] Depression Scale Answer Date Recorded Last EPDS [...] in an abandoned building, in an overnight alf, or couch-surfing.) Yes 04/20/2023 Are you worried [...] on file documented as of this encounter Procedures Procedure Name Priority Date/Time Associated Diagnosis Comments HCG QUALITATIVE URINE Routine 12/07/2023 9:35 AM CDT Depo-Provera contraceptive status documented in this encounter Results * HCG qualitative urine (12/07/2023 9:35 AM CDT) hCG Urine Qualitative Negative Negative RENETTA 12/07/2023 9:44 AM CDT [facility] Comment:This test is for scr eening purposes. Results should be interpreted along with the clinical picture. Confirmation testing is available if warranted by ordering [id number], HCG Quantitative . Urine MID-STREAM URINE SPECIMEN / Unknown Non-blood Collection / Unknown 12/07/2023 9:35 AM CDT 12/07/2023 9:38 AM CDT Rafy Molina MD LAB - URINE ORDERABL ES [facility] [address], [address] [place] [address], [facility] [phone] documented in this encounter Visit Diagnoses Diagnosis Depo-Provera contraceptive status- Primary Surveillance of other previously prescribed contraceptive method documented in this encounter Administered Medications Active Administered Medications - up to 3 most recent administrations Medication Order MAR Action Action Date Dose Rate Site medroxyPROGESTERone (DEPO-PROVERA) injection 150 mg 150 mg, Intramuscular, EVERY 3 MONTHS, First dose on Wed12/01/23 at 1500, For 4 doses $Given 12/07/2023 9:50 AM CDT 150 mg Left Deltoid documented in this encounter Additional Health Concerns Assessment Noted Time PHQ-9 Depression Total Score: 4 07/21/19 23 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 documented as of this encounter Care Teams Pit And Auxiliaries Supervisor Relationship Specialty Start Date End Date Clinic - [facility] [address] [place] [address] PCP - General 07/21/[address] [place] [address] Electroneurodiagnostic Technologist Dietitian, Registered 11/28/20 Patrick Ayon DO [address] [place], [place] [address] Assigned PCP 09/19/22 01/10/24 Patrick Ayon DO [address] [place], [place] [address] Referring Physician Family Medicine 09/21/22 Tarik Louie MD [address], [address] [place] [address] Allergy & Immunology 09/21/22 Loretta Ayon MD [address] [place] [address] Assigned OBGYN Provider 10/24/22 Tarik Louie MD [address] [place] [address] Assigned Allergy Provider 11/11/23 Cristopher Koroma MD [address] [place] [address] Assigned Surgical Provider 06/12/23 documented as of this encounter
--- OUTSIDE RECORDS SUMMARY | 2024-03-10 18:21 | XMS_ITS | Encounter Summary ---
Author Organization [facility] Address [address] [place] [address] Care Team Providers Care Lye Bath Operator Name Role Phone Salena Lund MD Unavailable eBtty Pederson RD Unavailable [phone] [facility] Primary Co re Provider Christen Murphy MD Unavailable [phone] Salena Lund MD Unavailable Salena Lund MD Unavailable Patrick Ayon DO Unavailable Patrick Ayon DO Unavailable Tarik Louie MD Unavailable Patrick Ayon DO Unavailable Loretta Ayon MD Unavailable [phone] Tarik Louie MD Unavailable Patrick Ayon DO Unavailable [phone] Cristopher Koroma MD Unavailable Tarik Louie MD Unavailable Jennifer Travis PA-C Unavailable Encounter Details Date Type Department Care Team (Late st Contact Info) Description 01/22/2022 Tim Medical Amber Oreilly [facility] [address] [place] [address] Coco Butt, BLOCK TESTER Social History Tobacco Use Types Packs/Day Years Used Date Smoking Tobacco: Never Smokeless Tobacco: Never Alcohol Use Standard Drinks/Week Comments No 0 (1 standard drink = 0.6 oz pur e alcohol) PHQ-2 Answer Date Recorded PHQ-2 Score 0 07/23/2020 [place] Depression Scale Answer Date Recorded [place] Depression Score 14 01/31/2021 Last EPDS Self [...] documented as of this encounter Care Teams Lye Bath Operator Relationship Specialty Start Date End Date Clinic - [facility] [address] [place] [address] PCP - General 07/21/21 [place] [address] [place] [address] Assigned PCP 08/04/20 01/23/[address] [place] [address] Retention Specialist Dietitian, Registered 11/28/20 Christen Murphy MD [address] [facility] [place] [address] Assigned PCP 01/24/22 05/01/22 [place] [address] [place] [address] Assigned PCP 05/02/22 06/05/22 [place] [address] [place] [address] Assigned PCP 08/15/22 09/04/22 Patrick Ayon DO [address], [place] [address] Assigned PCP 09/19/22 01/10/24 Patrick Ayon DO [address], [place] [address] Referring Physician Family Medicine 09/21/22 Tarik Louie MD [address], [address] [place], [place] [address] Allergy & Immunology 09/21/22 Patrick Ayon DO [address] [place] [address] Assigned PCP 09/05/22 09/18/22 Loretta Ayon MD [address] [place] [address] Assigned OBGYN Provider 10/24/22 Tarik Louie MD [address] [place] [address] Assigned Allergy Provider 11/11/23 Patrick Ayon DO [address] [place] [address] Assigned Pain Medication Provider 05/08/23 07/14/23 Cristopher Koroma MD [address] [place] [address] Assigned Surgical Provider 06/12/23 Tarik Louie MD 64[address] [place] [address] Assigned Allergy Provider 12/19/22 11/10/23 Jennifer Travis PA-C [address] [facility] [place] [address] Assigned PCP 01/11/24 documented as of this encounter
--- OUTSIDE RECORDS SUMMARY | 2024-03-10 18:21 | XMS_ITS | Encounter Summary ---
Author Organization [facility] Address [address] [place] [address] Care Team Providers Care Cell Technician Name Role Phone Betty Pederson Libertad PATE Unavailable [facility] Primary Ca re Provider Patrick Ayon DO Unavailable [phone] Patrick Ayon DO Unavailable Tarik Louie MD Unavailable Loretta Ayon MD Unavailable [phone] Tarik Louie MD Unavailable Patrick Ayon DO Unavailable Cristopher Koroma MD Unavailable [phone] Tarik Louie MD Unavailable Jennifer Travis PA-C Unavailable Reason for Visit * Reason Onset Date Comments MyChart Communication 02/03/2023 Encounter Details Date Type Department Care Team (Late st Contact Info) Description 02/03/2023 MyC Medical Advice [facility] [address] [place] [address] Loretta Ayon MD [address] [place] [address] MyChart Communication Social History Tobacco Use Types Packs/Day Years Used Date Smoking Tobacco: Never Smokeless Tobacco: Never Alcohol Use Standard Drinks/Week Comments No 0 (1 standard drink = 0.6 oz pur e alcohol) PHQ-2 Answer Date Recorded PHQ-2 Score 3 07/21/2022 [place] Depression Scale Answer Date Recorded Last EPDS Total Score Not on file 05/14/2022 The thought of harming myself has occurred to me . Never 05/14/2022 Sex and Gender Information Value Date Recorded Sex Assigned at Female 02/03/2019 8:53 AM CDT Gender Identity Female 02/03/2019 8:53 AM CDT Sexual Orientation Straight 02/03/2019 8: 53 AM CDT COVID-19 Exposure Response Date Recorded In the last 10 days, have yo u been in contact with someone who was confirmed or suspected to have Coronavirus/COVID-19? No / Unsure 01/26/2023 9:46 AM CDT documented as of this encounter Miscellaneous Notes * Telephone Encounter - Shantal Olson RN - 02/04/2023 8:25 AM CDT Call attempt #1. Left message to kassidy andres speak with triage based on her my chart message. 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 Care Teams Cell Technician Relationship Specialty Start Date End Date Clinic - [facility] [address] [place] [address] PCP - General 07/21/[address] [place] [address] Medical Services Assistant Dietitian, Registered 11/28/20 Patrick Ayon DO [address] [place] [address] Assigned PCP 09/19/22 01/10/24 Patrick Ayon DO [address] [place] [address] Referring Physician Family Medicine 09/21/22 Tarik Louie MD [address], [address] [place] [address] Allergy & Immunology 09/21/22 Loretta Ayon MD [address] [place] [address] Assigned OBGYN Provider 10/24/22 Tarik Louie MD [address] [place] [address] Assigned Allergy Provider 11/11/23 Patrick Ayon DO [address], [place] [address] Assigned Pain Medication Provider 05/08/23 07/14/23 Cristopher Koroma MD [address] [place] [address] Assigned Surgical Provider 06/12/23 Tarik Louie MD [address] [address] Assigned Allergy Provider 12/19/22 11/10/23 Jennifer Travis PA-C [address] [facility] [place] [address] Assigned PCP 01/11/24 documented as of this encounter
--- OUTSIDE RECORDS SUMMARY | 2024-03-10 18:21 | XMS_ITS | Encounter Summary ---
Author Organization [facility] Address [address] [place] [address] Care Team Providers Care Communications And Signals Supervisor Name Role Phone Alissa Robbins MD Unavailable Salena Lund MD Unavailable No Ref-Primary, Physician Primary Care Provider Betty Pederson RD Unavailable [phone] [facility] Primary Ca re Provider Christen Murphy MD Unavailable Salena Lund MD Unavailable Salena Lund MD Unavailable Patrick Ayon DO Unavailable Patrick Ayon S DO Unavailable Tarik Louie MD Unavailable Patrick Ayon DO Unavailable Loretta Ayon MD Unavailable [phone] Tarik Louie MD Unavailable Patrick Ayon DO Unavailable [phone] Cristopher Koroma MD Unavailable [phone] Tarik Louie MD Unavailable Jennifer Travis PA-C Unavailable Encounter Details Date Type Department Care Team (Late st Contact Info) Description 12/06/2020 MyC Medical Advice [address] [address] Betty Pederson, RD [address] [place] [address] Social History Tobacco Use Types Packs/Day Years Used Date Smoking Tobacco: Never Assessed Alcohol Use Standard Drinks/Week Comments No 0 (1 standard drink = 0.6 oz pur e alcohol) PHQ-2 Answer Date Recorded PHQ-2 Score 0 07/23/2020 Sex and Gender Information Value Date Recorded Sex Assigned at Female 02/03/2019 8:53 AM CDT Gender Identity Female 02/03/2019 8:53 AM CDT Sexual Orientation Straight 02/03/2019 8: 53 AM CDT COVID-19 Exposure Response Date Recorded In the last month, have you been in contact with someone who was confirmed or suspected to have Coronavirus / COVID-19? No / Unsure 11/27/2020 2:54 PM CDT documented as of this encounter Miscellaneous Notes * Telephone Encounter - Oly Read RD - 12/06/2020 10:54 AM CDT Images from the original note were not included. Gestational Diabetes Follow-up Subjective/Objective: Tsering Ramirez sent in blood glucose log for review. Last date of communication was: 11/28/20. Gestational diabetes is being managed with diet and activity Taking diabetes medications: no Estimated Date of Delivery: 01/27/21 BG/Food Log: Assessment: Post breakfast readings elevated due to high carbohydrate meals and sweet tea or [place] juice addedto meal. Anticipate post meals will be able to stay in target IF she is able to avoid sweet tea or juice, and soda at other meals. Ketones: trace-negative. Fasting blood glucoses: 71% in target. After breakfast: 57% in target. After lunch: 86% in target. After dinner: 100% in target. Plan/Response: Recommend stopping soda, sweet tea, and juice at meals. Additionally recommend selecting whole grains at breakfast if elevated after dropping any added sugar/juice at breakfast. Follow up 12/11/20, phone follow up scheduled 12/16/20. Oly Read MS, RD, LD, CDE Any diabetes medication dose changes were made via the CDE Protocol and Collaborative Practice Agreement with the patient's BEAUTY OPERATOR provider. A copy of this encounter was shared with the provider. documented in this encounter Plan of Treatment Not on file documented as of this encounter Visit Diagnoses Not on filedocumented in this encounter Additional Health Concerns Infection Onset Date Last Indicated Resolved Time Rule Out COVID-19 02/11/2022 02/11/2022 02/12/2022 11:16 AM CDT Assessment Noted Time PHQ-9 Depression Total Score: 4 02/06/20 20 7:07 AM CDT documented as of this encounter Care Teams Communications And Signals Supervisor Relationship Specialty Start Date End Date No Ref-Primary, Physician PCP - General 11/08/20 07/20/21 [facility] [id number] [place] [address] PCP - General 07/21/21 Alissa Robbins MD [address] [address] Assigned OBGYN Provider 04/12/20 [place] [address] [place] [address] Assigned PCP 08/04/20 01/23/[address] [place] [address] Director Of Cardiopulmonary Services Dietitian, Registered 11/28/20 Christen Murphy MD [address] [place] [address] [place] [address] Assigned PCP 01/24/22 05/01/22 [place] [address] [place] [address] Assigned PCP 05/02/22 06/05/22 [place] [address] [place] [address] Assigned PCP 08/15/22 09/04/22 Patrick Ayon DO [address] [place] [address] Assigned PCP 09/19/22 01/10/24 Patrick Ayon DO [address] [place] [address] Referring Physician Family Medicine 09/21/22 Tarik Louie MD [address], [address] [place], [place] [address] Allergy & Immunology 09/21/22 Patrick Ayon DO [address] [place] [address] Assigned PCP 09/05/22 09/18/22 Loretta Ayon MD [address] [place] [address] Assigned OBGYN Provider 10/24/22 Tarik Louie MD [address] [place], [place] [address] Assigned Allergy Provider 11/11/23 Patrick Ayon DO [address] [place] [address] Assigned Pain Medication Provider 05/08/23 07/14/23 Cristopher Koroma MD [address] [place], [place] [address] Assigned Surgical Provider 06/12/23 Tarik Louie MD [address] [facility] [place] [place] [address] Assigned Allergy Provider 12/19/22 11/10/23 Jennifer Travis PA-C [address] [facility] [place] [address] Assigned PCP 01/11/24 documented as of this encounter
--- OUTSIDE RECORDS SUMMARY | 2024-03-10 18:21 | XMS_ITS | Clinical Summary ---
Author Organization [place] Address [address] [place] [address] Care Team Providers Care Report Manager Name Role Phone Betty Pederson RD Unavailable [facility] re Provider Patrick Ayon DO Unavailable Tarik Louei MD Unavailable Loretta Ayon MD Unavailable [phone] Tarik Louie MD Unavailable Cristopher Koroma MD Unavailable [phone] Jennifer Travis PA-C Unavailable [phone] Allergies No known active allergies Medications Medication [...] 09/28/2023 Active vitamin D3 (CHOLECALCIFEROL) 250 mcg (55966 units) capsule Take 1 capsule by mouth [...] Overview: Added automatically from request for surgery [id number] Encounter for triage in patient 01/29/2021 08/17/2023 Normal labor 01/29/2021 08/17/2023 IUD (intrauterine device) in place 09/02/2016 08/17/2023 NO ACTIVE PROBLEMS 08/05/2016 S/P 07/18/2016 08/05/2016 Labor and delivery indicatio n for care or intervention 07/17/2016 08/05/2016 Indication for care in labor or delivery 07/17/2016 08/05/2016 Group B streptococcal infect ion during 12/25/2015 08/05/2016 Supervision of normal 12/10/2015 08/05/2016 GBS (group B Streptococcus c arrier), +RV culture, currently 06/05/2011 12/10/2015 High-risk , young primigravida 12/18/2010 12/10/2015 Overview: Interested in implanon for contraception Encounters Date Type Department Care Team Description 12/21/2023 9:15 AM [facility] [place] [facility] [address] [place] [address] Vitamin D deficiency; Diarrhea, unspecified type; Elevated cholesterol 12/21/2023 Travel 12/09/2023 9:00 AM CDT Virtual Visit [facility] [address] [facility], [facility] [address] [place] [address] Jennifer Travis PA-C Elevated cholesterol (Primary Dx); Diarrhea, unspecified type; Vitamin D deficiency from Last 3 Months Immunizations Name Administration Dates Next Due COVID-19 Monovalent 18+ (Moderna) 06/19/2021 DTAP (<7y) 06/27/1997, 3,04/18/1992, 2,1991 HEPA 09/06/2007 HPV 09/06/2007 HepB 03/26/1998,08/22/1997,06/27/1997 Influenza (IIV3) PF 03/13/2011 MMR 05/13/2022(),06/27/1997,01/09/19 93 Meningococcal (Menomune??) 09/06/2007 Poliovirus, inactivated (IPV) 06/27/1997 ,01/09/1993,02/13/1992, 2 TDAP (Adacel,Boostrix) 04/14/2022,10/20/2011 TDAP Vaccine (Adacel) 06/17/2016 Varicella 09/06/2007,08/29/1997 Family History Medical History Relation Comments Diabetes Paternal Grandmother Hypertension Paternal Grandmother Relation Status Comments Brother 1 Alive Brother 2 Alive Father Alive Mother Alive Paternal Grandmother Sister Alive Social History Tobacco Use Types Packs/Day Years Used Date Smoking Tobacco: Never Passive Smoke Exposure: Never Smokeless Tobacco: Never Tobacco Cessation:Counseling Given: No Alcohol Use Standard Drinks/Week Comments No 0 (1 standard drink = 0.6 oz pur e alcohol) PHQ-2 Answer Date Recorded PHQ-2 Score 0 08/18/2023 [place] Depression Scale Answer Date Recorded Last EPDS [...] in an abandoned building, in an overnight mcfp, or couch-surfing.) Yes 04/20/2023 Are you worried [...] 09/28/2023 2:47 PM CDT Plan of Treatment Health Maintenance Due Date Last Done Comments ADVANCE CARE PLANNING 1991 ANNUAL REVIEW OF HM ORDERS 1991 YEARLY PREVENTIVE VISIT 1991 HPV IMMUNIZATION (2 - 3-dose series) 10/04/2007 09/06/2007 HEPATITIS C SCREENING 08/30/2009 COVID-19 Vaccine ( season) 2024 06/19/2021 INFLUENZA VACCINE (#1) 2024 03/13/2011 HPV FOLLOW-UP 03/31/2024 03/31/2023 PAP FOLLOW-UP 03/31/2024 03/31/2023, 07/22, 12/25/2015 DTAP/TDAP/TD IMMUNIZATION (9 - Td or Tdap) 04/14/2032 04/14/2022, 06/17/2016, 10/20/2011, Additional history exists HEPATITIS B IMMUNIZATION Completed 998, 08/22/1997, 06/27/1997 MENINGITIS IMMUNIZATION Aged Out 09/06/2007 No l onger eligible based on patient's age to complete this topic HIV SCREENING Completed 11/04/2021, 05/22, 12/10/2015, Additional history exists PAP Discontinued 03/31/2023, 07/22, 12/25/2015 MAMMO SCREENING Discontinued 04/21/2023 PHQ-2 (once per calendar year) Completed 08/18/2023, 08/17/2023, 07/21/2022, Additional history exists Pneumococcal Vaccine: Pediatrics (0 to 5 Years) and At-Risk Patients (6 to 64 Years) Aged Out No longer eligible based on patient's age to complete this topic RSV MONOCLONAL ANTIBODY Aged Out No l onger eligible based on patient's age to complete this topic Procedures Procedure Name Priority Date/Time Associated Diagnosis [...] intake, and treatment affect the concentration of 27-hifktzt-Vlcwhqj D. Values may decrease during winter months and increase during summer months. Vitamin D determination is routinely performed by an immunoassay specific for 25 hydroxyvitamin D3. ??If an individual is on vitamin D2(ergocalciferol) supplementation, please specify 25 OH vitamin D2 and D3 level determination by LCMSMS test VITD23. Jennifer Travis PA-C LAB - BLOOD ORDERABL ES LABORATORY [facility] [place] [facility] [address] [facility], Room [address] [place] [address], [facility] * (ABNORMAL) Lipid panel reflex to direct [...] LAB - BLOOD ORDERABL ES UU LABORATORY [facility] [place] [facility] [address] [facility], Room [address] [place] [phone] [[email or web address]] * MA Diagnostic Bilateral w/Rogelio (04/21/2023 3:08 [...] sebaceous cyst/epidermal inclusion cyst. Estefani Aguila APRN REGISTERED NURSE CARDIAC TELEMETRY IMG MAMMOGRAPHY ORDERABLES * Pap screen with [...] component of this testing was completed at [facility] 04/05/2023 10:37 AM CDT SPECIALTY LABS Brushing CERVIX UTERI STRUCTURE / Unknown Non-blood Collection / Unknown 03/31/2023 2:58 PM CDT 03/31/2023 3:02 PM CDT Loretta WILLETT - [facility] Specialty Lab [address] [facility], Room [address] [phone], [facility] [phone] * (ABNORMAL) HPV High Risk Types DNA [...] and its performance characteristics determined by the [facility], Molecular Diagnostics Laboratory. It has not been [...] Ayon MD LAB - BLOOD ORDERABL ES MOLECULAR DIAGNOSTICS Molecular Diagnostics [address] [facility], Room [address] [address], [facility] [phone] * HIV-1 Antibody (External Result) (11/04/2021 12:00 PM CDT) HIV 1&2 Antibody (External) Nonreactive Nonreactive [facility] 11/04/2021 12:0 0 PM CDT Cat Graham MD LAB - HIM EXTERNA L RESULT [facility] LAUREN SHAHIDA [address] [place] [address], [facility] [phone] from Last 3 Months or Most Recently Relevant to Health Maintenance Advance Directives For more information, please contact: [phone] * Full Code (Latest Code Status on [...] Comments Code status determined by: Discussion with zarina nt/ legal decision maker Care Teams Report Manager Relationship Specialty Start Date End Date [facility] [address] [place] [address] PCP - General 07/21/[address] [place], [place] [address] Leave Coordinator Dietitian, Registered 11/28/20 Patrick Ayon DO [address] [place], [place] [id number] Referring Physician Family Medicine 09/21/22 Tarik Louie MD [address], [address] [place], [place] [address] Allergy & Immunology 09/21/22 Loretta Ayon MD [address] [place] [address] Assigned OBGYN Provider 10/24/22 Tarik Louie MD [address] [place] [address] Assigned Allergy Provider 11/11/23 Cristopher Koroma MD [address] [place] [address] Assigned Surgical Provider 06/12/23 Jennifer Travis PA-C [address] [facility] [address] [place], [place] [address] Assigned PCP 01/11/24
--- OUTSIDE RECORDS SUMMARY | 2024-03-10 18:21 | XMS_ITS | Encounter Summary ---
Author Organization [place] Address [address] [place] [address] Care Team Providers Care Boatwright Name Role Phone Alissa Robbins MD Unavailable Salena Lund MD Unavailable No Ref-Primary, Physician Primary Care Provider Betty Pederson RD Unavailable [facility] Primary Ca re Provider Christen Murphy MD Unavailable [phone] Salena Lund MD Unavailable Salena Lund MD Unavailable Patrick Ayon DO Unavailable Patrick Ayon S DO Unavailable Tarik Louie MD Unavailable Patrick Ayon DO Unavailable Loretta Aoyn MD Unavailable [phone] Tarik Louie MD Unavailable Patrick Ayon DO Unavailable Cristopher Koroma MD Unavailable [phone] Tarik Louie MD Unavailable Jennifer Travis PA-C Unavailable Encounter Details Date Type Department Care Team (Late st Contact Info) Description 03/10/2021 [facility] [place] [address], [address] [place] [address] April Lazaro PA-C [address] [place] [address] Social History Tobacco Use Types Packs/Day Years Used Date Smoking Tobacco: Never Smokeless Tobacco: Never Alcohol Use Standard Drinks/Week Comments No 0 (1 standard drink = 0.6 oz pur e alcohol) PHQ-2 Answer Date Recorded PHQ-2 Score 0 07/23/2020 [place] Depression Scale Answer Date Recorded [place] Depression Score 14 01/31/2021 Last EPDS Self [...] have Coronavirus / COVID-19? No / Unsure 02/20/2021 3:01 PM CDT documented as of this encounter Plan [...] documented as of this encounter Care Teams Boatwright Relationship Specialty Start Date End Date No Ref-Primary, Physician PCP - General 11/08/20 07/20/21 Clinic - [facility] [address] [place] [address] PCP - General 07/21/21 Alissa Robbins MD [address] [facility], [address] [place] [address] Assigned OBGYN Provider 04/12/20 [place] [address] [place] [address] Assigned PCP 08/04/20 01/23/22 Betty Pederson, RIO [address] [place] [address] Director Global Strategic Publisher Sales Dietitian, Registered 11/28/20 Christen Murphy MD [address] [place] [address] [place] [address] Assigned PCP 01/24/22 05/01/22 [place] [address] [place] [address] Assigned PCP 05/02/22 06/05/22 [place] [address] [place] [address] Assigned PCP 08/15/22 09/04/22 Patrick Ayon DO [address], [place] [address] Assigned PCP 09/19/22 01/10/24 Patrick Ayon DO [address] [address] Referring Physician Family Medicine 09/21/22 Tarik Louie MD [address], [address] [place] [address] Allergy & Immunology 09/21/22 Patrick Ayon DO [address] [address] Assigned PCP 09/05/22 09/18/22 Loretta Ayon MD [address] [place] [address] Assigned OBGYN Provider 10/24/22 Tarik Louie MD [address] [place] [id number] Assigned Allergy Provider 11/11/23 Patrick Ayon DO [address], [place] [address] Assigned Pain Medication Provider 05/08/23 07/14/23 Cristopher Koroma MD [address] [place] [address] Assigned Surgical Provider 06/12/23 Tarik Louie MD [address] [place] [id number] Assigned Allergy Provider 12/19/22 11/10/23 Jennifer Travis PA-C [address] [facility] [place] [id number] Assigned PCP 01/11/24 documented as of this encounter
--- OUTSIDE RECORDS SUMMARY | 2024-03-10 18:21 | XMS_ITS | Encounter Summary ---
Author Organization [place] Address [address] [place] [address] Care Team Providers Care Software Designer Name Role Phone Betty Pederson Libertad PATE Unavailable [facility] Primary Ca re Provider Patrick Ayon DO Unavailable Patrick Ayon DO Unavailable Tarik Louie MD Unavailable Loretta Ayon MD Unavailable [phone] Tarik Louie MD Unavailable Cristopher Koroma MD Unavailable Encounter Details Date Type Department Care Team (Late st Contact Info) Description 12/01/2023 Orders Only [facility] [address] [place] [address] Lorteta Ayon MD [address] [place] [address] Encounter for surveillance of other contraceptive (Primary Dx) Social History Tobacco Use Types Packs/Day Years Used Date Smoking Tobacco: Never Passive Smoke Exposure: Never Smokeless Tobacco: Never Alcohol Use Standard Drinks/Week Comments No 0 (1 standard drink = 0.6 oz pur e alcohol) PHQ-2 Answer Date Recorded PHQ-2 Score 0 08/18/2023 [place] Depression Scale Answer Date Recorded Last EPDS [...] Answer Date Recorded Do you have housing? (Housin g is defined as stable permanent housing [...] as of this encounter Progress Notes * Josephine Cagle LPN - 12/01/2023 7:[address] standing orders for Depo Provera injections. * Merline Su RN - 12/01/2023 7:00 AM CDT Loretta Ayon MD P [facility] Electronic Data Processing Auditor Triage Caller: Unspecified (Today, 7:00 AM) Can you please place standing orders for depo provera? 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 [address] [place], [place] [address] Allergy & Immunology 09/21/22 Loretta Ayon MD [address] [place] [address] Assigned OBGYN Provider 10/24/22 Tarik Louie MD [address] [place] [address] Assigned Allergy Provider 11/11/23 Cristopher Koroma MD [address] [place] [address] Assigned Surgical Provider 06/12/23 documented as of this encounter
--- OUTSIDE RECORDS SUMMARY | 2024-03-10 18:21 | XMS_ITS | Encounter Summary ---
Author Organization [place] Address [address] [place] [address] Care Team Providers Care Mannequin Mold Maker Name Role Phone Betty Pederson Libertad PATE Unavailable [facility] Primary Ca re Provider Patrick Ayon DO Unavailable [phone] Patrick Ayon DO Unavailable [phone] Tarik Louie MD Unavailable Loretta Ayon MD Unavailable [phone] Tarik Louie MD Unavailable Cristopher Koroma MD Unavailable [phone] Encounter Details Date Type Department Care Team (Late st Contact Info) Description 12/21/2023 9:15 AM CDT Lab [facility] [address] [place] [address] Vitamin D deficiency; Diarrhea, unspecified type; Elevated cholesterol Social History Tobacco Use Types Packs/Day Years Used Date Smoking Tobacco: Never Passive Smoke Exposure: Never Smokeless Tobacco: Never Alcohol Use Standard Drinks/Week Comments No 0 (1 standard drink = 0.6 oz pur e alcohol) PHQ-2 Answer Date Recorded PHQ-2 Score 0 08/18/2023 [place] Depression Scale Answer Date Recorded Last EPDS [...] in an abandoned building, in an overnight halfway, or couch-surfing.) Yes 04/20/2023 Are you worried [...] Procedure Name Priority Date/Time Associated Diagnosis Comments VITAMIN D DEFICIENCY SCREENING Routine 12/21/2023 9:14 AM CDT Vitamin D deficiency LIPID REFLEX TO DIRECT LDL PANEL Routine 12/21/2023 9:14 AM CDT Diarrhea, unspecified type Elevated cholesterol documented in this encounter Results * (ABNORMAL) Lipid panel [...] LAB - BLOOD ORDERABL ES [facility] LABORATORY [facility] [address] [facility], [address] [phone] * Vitamin D Deficiency (12/21/2023 9:14 AM CDT) Vitamin D, Total (25-Hydroxy) 20 20 - 50 ng/mL 12/21/2023 6:48 PM CDT [facility] Comment:optimum levels Blood BLOOD SPECIMEN / Unknown Venipuncture / Unknown 12/21/2023 9:14 AM CDT 12/21/2023 9:14 AM CDT Narrative [facility] - 12/21/2023 6:48 PM CDT Season, race, dietary intake, and treatment affect the concentration of 33-rqggxrb-Fgefgrf D. Values may decrease during winter months and increase during summer months. Vitamin D determination is routinely performed by an immunoassay specific for 25 hydroxyvitamin D3. ??If an individual is on vitamin D2(ergocalciferol) supplementation, please specify 25 OH vitamin D2 and D3 level determination by LCMSMS test VITD23. 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 HELPER documented as of this encounter Care Teams Mannequin Mold Maker Relationship Specialty Start Date End Date Clinic - [facility] [address] [place] [address] PCP - General 07/21/[address] [place] [address] Open Die Inspector Dietitian, Registered 11/28/20 Patrick Ayon DO [address] [place] [address] Assigned PCP 09/19/22 01/10/24 Patrick Ayon DO [address] [place] [address] Referring Physician Family Medicine 09/21/22 Tarik Louie MD [address], [address] [place] [address] Allergy & Immunology 09/21/22 Loretta Ayon MD [address] [place] [address] Assigned OBGYN Provider 10/24/22 Tarik Louie MD [address] [place] [address] Assigned Allergy Provider 11/11/23 Cristopher Koroma MD [address] [place] [address] Assigned Surgical Provider 06/12/23 documented as of this encounter
--- OUTSIDE RECORDS SUMMARY | 2024-03-10 18:21 | XMS_ITS | Encounter Summary ---
Author Organization [facility] Address [address] [place] [address] Care Team Providers Care Planning And Analysis Manager Name Role Phone Betty Pederson Libertad PATE Unavailable [facility] Primary Ca re Provider Patrick Ayon DO Unavailable Patrick Ayon DO Unavailable [phone] Tarik Louie MD Unavailable Loretta Ayon MD Unavailable [phone] Tarik Louie MD Unavailable Patrick Ayon DO Unavailable [phone] Cristopher Koroma MD Unavailable Tarik Louie MD Unavailable Jennifer Travis PA-C Unavailable [phone] Encounter Details Date Type Department Care Team (Late st Contact Info) Description 02/15/2023 [facility] Medical Advice [address] [phone] Rodrick Foote MD 0 [place] [address] Social History Tobacco Use Types Packs/Day Years Used Date Smoking Tobacco: Never Smokeless Tobacco: Never Alcohol Use Standard Drinks/Week Comments No 0 (1 standard drink = 0.6 oz pur e alcohol) PHQ-2 Answer Date Recorded PHQ-2 Score 3 07/21/2022 [place] Depression Scale Answer Date Recorded Last EPDS [...] Total Score: 4 07/21/19 23 11:38 AM BUSINESS SERVICES CLERK documented as of this encounter Care Teams Planning And Analysis Manager Relationship Specialty Start Date End Date Clinic - [facility] [address] [place] [address] PCP - General 07/21/[address] [place] [address] Supervisor Metalizing Dietitian, Registered 11/28/20 Patrick Ayon DO [address] [place] [address] Assigned PCP 09/19/22 01/10/24 Patrick Ayon DO [address] [place] [address] Referring Physician Family Medicine 09/21/22 Tarik Louie MD [address], [address] [place] [address] Allergy & Immunology 09/21/22 Loretta Ayon MD [address] [place] [address] Assigned OBGYN Provider 10/24/22 Tarik Louie MD [address] [place] [address] Assigned Allergy Provider 11/11/23 Patrick Ayon DO [address] [place] [address] Assigned Pain Medication Provider 05/08/23 07/14/23 Cristopher Koroma MD [address] [place] [address] Assigned Surgical Provider 06/12/23 Tarik Louie MD [address] [place] [address] Assigned Allergy Provider 12/19/22 11/10/23 Jennifer Travis PA-C [address] [facility] [place] [address] Assigned PCP 01/11/24 documented as of this encounter
--- OUTSIDE RECORDS SUMMARY | 2024-03-10 18:21 | XMS_ITS | Encounter Summary ---
Author Organization [place] Address [address] [place] [address] Care Team Providers Care Wire Bound Box Machine Helper Name Role Phone Alissa Robbins MD Unavailable Salena Lund MD Unavailable No Ref-Primary, Physician Primary Care Provider Betty Pederson RD Unavailable [facility] Primary Ca re Provider Christen Murphy MD Unavailable [phone] Salena Lund MD Unavailable Salena Lund MD Unavailable Patrick Ayon DO Unavailable Patrick Ayon S DO Unavailable Tarik Louie MD Unavailable Patrick Ayon DO Unavailable Loretta Ayon MD Unavailable [phone] Tarik Louie MD Unavailable Patrick Ayon DO Unavailable [phone] Cristopher Koroma MD Unavailable Tarik Louie MD Unavailable Jennifer Travis PA-C Unavailable Encounter Details Date Type Department Care Team (Late st Contact Info) Description 11/08/2020 [facility] [address] [place] [address] [place] [address] [place] [address] Social History Tobacco Use Types Packs/Day Years [...] have Coronavirus / COVID-19? No / Unsure 11/08/2020 3:21 PM CDT documented as of this encounter [...] documented as of this encounter Care Teams Wire Bound Box Machine Helper Relationship Specialty Start Date End Date No Ref-Primary, Physician PCP - General 11/08/20 07/20/21 [facility] [address] [place] [address] PCP - General 07/21/21 Alissa Robbins MD [address] [place], [address] [address] Assigned OBGYN Provider 04/12/20 [place] [address] [place] [address] Assigned PCP 08/04/20 01/23/[address] [place] [address] Paginator Dietitian, Registered 11/28/20 Christen Murphy MD [address] [place] [address] [place], [place] [address] Assigned PCP 01/24/22 05/01/22 [place] [address] [place] [address] Assigned PCP 05/02/22 06/05/22 [place] [address] [place] [address] Assigned PCP 08/15/22 09/04/22 Patrick Ayon DO [address] [place] [address] Assigned PCP 09/19/22 01/10/24 Patrick Ayon DO [address] [place] [address] Referring Physician Family Medicine 09/21/22 Tarik Louie MD [address], [facility] 200 [place] [address] Allergy & Immunology 09/21/22 Patrick Ayon DO [address], [place] [address] Assigned PCP 09/05/22 09/18/22 Loretta Ayon MD [address] [place] [address] Assigned OBGYN Provider 10/24/22 Tarik Louie MD [address] [place] [address] Assigned Allergy Provider 11/11/23 Patrick Ayon DO [address], [place] [address] Assigned Pain Medication Provider 05/08/23 07/14/23 Cristopher Koroma MD [address] [place] [address] Assigned Surgical Provider 06/12/23 Tarik Louie MD [address] [place] [address] Assigned Allergy Provider 12/19/22 11/10/23 Jennifer Travis PA-C [address] [facility] [place] [address] Assigned PCP 01/11/24 documented as of this encounter
--- OUTSIDE RECORDS SUMMARY | 2024-03-10 18:21 | XMS_ITS | Encounter Summary ---
Author Organization [place] Address [address] [place] [address] Care Team Providers Care Aircraft Instrument Engineer Name Role Phone Salena Lund MD Unavailable No Ref-Primary, Physician Primary Care Provider Betty Pederson RD Unavailable [phone] [facility] Primary [place] re Provider Christen Murphy MD Unavailable Salena Lund MD Unavailable Salena Lund MD Unavailable Patrick Ayon DO Unavailable Patrick Ayon DO Unavailable Tarik Louie MD Unavailable Patrick Ayon DO Unavailable Loretta Ayon MD Unavailable [phone] Tarik Louie MD Unavailable Patrick Ayon DO Unavailable Cristopher Koroma MD Unavailable Tarik Louie MD Unavailable Jennifer Travis PA-C Unavailable Encounter Details Date Type Department Care Team (Late st Contact Info) Description 06/20/2021 Documentation Only INTERFACED REPORT Unknown, Provider Social History Tobacco Use Types Packs/Day Years Used Date Smoking Tobacco: Never Smokeless Tobacco: Never Alcohol Use Standard Drinks/Week Comments No 0 (1 standard drink = 0.6 oz pur e alcohol) PHQ-2 Answer Date Recorded PHQ-2 Score 0 07/23/2020 [place] Depression Scale Answer Date Recorded [place] Depression Score 14 01/31/2021 Last EPDS Self [...] have Coronavirus / COVID-19? No / Unsure 06/19/2021 6:59 AM CLINICAL SYSTEMS EDUCATOR documented as of this encounter Plan of Treatment Not on file documented as of this encounter Visit Diagnoses Not on filedocumented in this encounter Additional Health Concerns Infection Onset Date Last Indicated Resolved Time Rule Out COVID-19 02/11/2022 02/11/2022 02/12/2022 11:16 AM CDT Assessment Noted Time PHQ-9 Depression Total Score: 4 02/06/20 20 7:07 AM CDT documented as of this encounter Care Teams Aircraft Instrument Engineer Relationship Specialty Start Date End Date No Ref-Primary, Physician PCP - General 11/08/20 07/20/21 Clinic - [facility] [address] [place] [address] PCP - General 07/21/21 [place] [address] [place] [address] Assigned PCP 08/04/20 01/23/[address] [place] [address] Host Coordinator Dietitian, Registered 11/28/20 [place] [address] [place] [address] [place] [address] Assigned PCP 01/24/22 05/01/22 [place] [address] [place] [address] Assigned PCP 05/02/22 06/05/22 [place] [address] [place] [address] Assigned PCP 08/15/22 09/04/22 Patrick Ayon DO [address] [place], [place] [address] Assigned PCP 09/19/22 01/10/24 Patrick Ayon DO [address] [place] [address] Referring Physician Family Medicine 09/21/22 Tarik Louie MD [address] [facility] , [address] [place] [address] Allergy & Immunology 09/21/22 Patrick Ayon DO [address] [place] [address] Assigned PCP 09/05/22 09/18/22 Loretta Ayon MD [address] [place] [address] Assigned OBGYN Provider 10/24/22 Tarik Louie MD [address] [place] [address] Assigned Allergy Provider 11/11/23 Patrick Ayon DO [address] [place] [address] Assigned Pain Medication Provider 05/08/23 07/14/23 Cristopher Koroma MD [address] [place] [address] Assigned Surgical Provider 06/12/23 Tarik Louie MD [address] [address] Assigned Allergy Provider 12/19/22 11/10/23 Jennifer Travis PA-C [address] [facility] [place] [address] Assigned PCP 01/11/24 documented as of this encounter
--- OUTSIDE RECORDS SUMMARY | 2024-03-10 18:21 | XMS_ITS | Encounter Summary ---
Author Organization [place] Address [address] [place] [address] Care Team Providers Care Estimator Binding Name Role Phone Betty Pederson Libertad PATE Unavailable [facility] Primary [place] re Provider Patrick Ayon DO Unavailable [phone] Patrick Ayon DO Unavailable [phone] Tarik Louie MD Unavailable Loretta Ayon MD Unavailable [phone] Tarik Louie MD Unavailable Cristopher Koroma MD Unavailable [phone] Encounter Details Date Type Department Care Team (Latest Contact Info) Description 12/21/2023 Travel Social History Tobacco Use Types Packs/Day Years Used Date Smoking Tobacco: Never Passive Smoke Exposure: Never Smokeless Tobacco: Never Alcohol Use Standard Drinks/Week Comments No 0 (1 standard drink = 0.6 oz pur e alcohol) PHQ-2 Answer Date Recorded PHQ-2 Score 0 08/18/2023 [place] Depression Scale Answer Date Recorded Last EPDS [...] in an abandoned building, in an overnight fpc, or couch-surfing.) Yes 04/20/2023 Are you worried [...] Total Score: 4 07/21/19 23 11:38 AM [facility] documented as of this encounter Care Teams Estimator Binding Relationship Specialty Start Date End Date Clinic - [facility] [address] [place] [address] PCP - General 07/21/[address] [facility] [place] [address] [employer] Coxswain Dietitian, Registered 11/28/20 Patrick Ayon DO [address] [place] [address] Assigned PCP 09/19/22 01/10/24 Patrick Ayon DO [address] [place] [address] Referring Physician Family Medicine 09/21/22 Tarik Louie MD [address], [address] [place] [address] Allergy & Immunology 09/21/22 Loretta Ayon MD [address] [place] [address] Assigned OBGYN Provider 10/24/22 Tarik Louie MD [address] [place] [address] Assigned Allergy Provider 11/11/23 Cristopher Koroma MD [address] [place] [address] Assigned Surgical Provider 06/12/23 documented as of this encounter
--- OUTSIDE RECORDS SUMMARY | 2024-03-10 18:21 | XMS_ITS | Encounter Summary ---
Author Organization [place] Address [address] [place] [address] Care Team Providers Care Foreign Broadcast Specialist Name Role Phone Betty Pederson Libertad PATE Unavailable [phone] [facility] Primary Ca re Provider Patrick Ayon DO Unavailable Patrick Ayon DO Unavailable [phone] Tarik Louie MD Unavailable Loretta Ayon MD Unavailable [phone] Tarik Louie MD Unavailable Patrick Ayon DO Unavailable [phone] Cristopher Koroma MD Unavailable [phone] Tarik Louie MD Unavailable Jennifer Travis PA-C Unavailable [phone] Encounter Details Date Type Department Care Team (Late st Contact Info) Description 05/05/2023 [facility] Medical Advice [facility] Surgery [facility] [address] [place] [address] Cristopher Koroma MD [address] [place] [address] Social History Tobacco Use Types Packs/Day Years Used Date Smoking Tobacco: Never Passive Smoke Exposure: Never Smokeless Tobacco: Never Alcohol Use Standard Drinks/Week Comments No 0 (1 standard drink = 0.6 oz pur e alcohol) PHQ-2 Answer Date Recorded PHQ-2 Score 3 07/21/2022 [place] Depression Scale Answer Date Recorded Last EPDS [...] in an abandoned building, in an overnight snf, or couch-surfing.) Yes 04/20/2023 Are you worried [...] Total Score: 4 07/21/19 23 11:38 AM MOTHER TESTER documented as of this encounter Care Teams Foreign Broadcast Specialist Relationship Specialty Start Date End Date Clinic - [facility] [address] [place] [address] PCP - General 07/21/[address] [place], [place] [address]36[address] Dairy Processing Equipment Operator Dietitian, Registered 11/28/20 Patrick Ayon DO [address] [place] [address] Assigned PCP 09/19/22 01/10/24 Patrick Ayon DO [address] [place] [address] Referring Physician Family Medicine 09/21/22 Tarik Louie MD [address], [address] [place], [place] [address] Allergy & Immunology 09/21/22 Loretta Ayon MD [address] [place] [address] Assigned OBGYN Provider 10/24/22 Tarik Louie MD [address] [place] [address] Assigned Allergy Provider 11/11/23 Patrick Ayon DO [address] [place] [address] Assigned Pain Medication Provider 05/08/23 07/14/23 Cristopher Koroma MD [address] [place] [address] Assigned Surgical Provider 06/12/23 Tarik Louie MD [address] [address] Assigned Allergy Provider 12/19/22 11/10/23 Jennifer Travis PA-C [address] [facility] [address] [place] [address] Assigned PCP 01/11/24 documented as of this encounter
--- OUTSIDE RECORDS SUMMARY | 2024-03-10 18:22 | XMS_ITS | Encounter Summary ---
Author Organization [place] Address [address] [place] [address] Care Team Providers Care Hand Box Folder Name Role Phone Forest Guillen MD Primary Care Provider Laura Mcallister MD Unavailable Alissa Robbins MD Unavailable Salena Lund MD Unavailable No Ref-Primary, Physician Primary Care Provider Betty Pederson RD Unavailable [phone] [facility] Primary Ca re Provider Christen Murphy MD Unavailable [phone] Salena Lund MD Unavailable Salena Lund MD Unavailable Patrick Ayon DO Unavailable Patrick Ayon DO Unavailable Tarik Louie MD Unavailable Patrick Ayon DO Unavailable Loretta Ayon MD Unavailable [phone] Tarik Louie MD Unavailable Patrick Ayon DO Unavailable Cristopher Koroma MD Unavailable Tarik Louie MD Unavailable Jennifer Travis PA-C Unavailable [phone] Encounter Details Date Type Department Care Team (Late st Contact Info) Description 11/17/2019 [facility] Medical Advice [facility] [address] [place] [address] Barbara Darden [facility], CASTING WHEEL OPERATOR [facility] [address] [place], [facility] [address] [place] [address] Social History Tobacco Use Types Packs/Day Years Used Date Smoking Tobacco: Never Smokeless Tobacco: Never Alcohol Use Standard Drinks/Week Comments No 0 (1 standard drink = 0.6 oz pur e alcohol) PHQ-2 Answer Date Recorded PHQ-2 Score 0 06/29/2018 Sex and Gender Information Value Date Recorded Sex Assigned at Female 02/03/2019 8:53 AM CDT Gender Identity Female 02/03/2019 8:53 AM CDT Sexual Orientation Straight 02/03/2019 8: 53 AM CDT COVID-19 Exposure Response Date Recorded In the last month, have you been in contact with someone who was confirmed or suspected to have Coronavirus / COVID-19? No / Unsure 11/03/2019 1:02 PM CDT documented as of this encounter Plan of Treatment Not on file documented as of this encounter Visit Diagnoses Not on filedocumented in this encounter Additional Health Concerns Infection Onset Date Last Indicated Resolved Time Rule Out COVID-19 02/11/2022 02/11/2022 02/12/2022 11:16 AM CDT Assessment Noted Time PHQ-9 Depression Total Score: 4 09/04/19 17 7:12 AM CDT documented as of this encounter Care Teams Hand Box Folder Relationship Specialty Start Date End Date Forest Guillen MD PCP - General Internal Medicine 02/25/17 10/08/20 No Ref-Primary, Physician PCP - General 11/08/20 07/20/21 Clinic - [facility] [address] [place] [address] PCP - General 07/21/21 Laura Mcallister MD [address] [place] [address] Assigned PCP 10/22/19 08/03/20 Alissa Robbins MD [address] [place] [facility], [facility] [address] [place] [address] Assigned OBGYN Provider 04/12/20 [place] [address] [place] [address] Assigned PCP 08/04/20 01/23/22 Betty Pederson, RIO [address]50 [place] [address] Pulmonary Function Technician Dietitian, Registered 11/28/20 Christen Murphy MD [address] [facility] [place] [address] Assigned PCP 01/24/22 05/01/22 [place] [address] [place] [address] Assigned PCP 05/02/22 06/05/22 [place] [address] [place] [address] Assigned PCP 08/15/22 09/04/22 Patrick Ayon DO [address] [place] [address] Assigned PCP 09/19/22 01/10/24 Patrick Ayon DO [address] [place] [address] Referring Physician Family Medicine 09/21/22 Tarik Louie MD [address], [address] [place] [address] Allergy & Immunology 09/21/22 Patrick Ayon DO [address] [place] [address] Assigned PCP 09/05/22 09/18/22 Loretta Ayon MD [address] [place] [address] Assigned OBGYN Provider 10/24/22 Tarik Louie MD [address] [address] Assigned Allergy Provider 11/11/23 Patrick Ayon DO [address] [place] [address] Assigned Pain Medication Provider 05/08/23 07/14/23 Cristopher Koroma MD [address] [place] [address] Assigned Surgical Provider 06/12/23 Tarik Louie MD [address] [address] Assigned Allergy Provider 12/19/22 11/10/23 Jennifer Travis PA-C [address] [facility] [place] [address] Assigned PCP 01/11/24 documented as of this encounter
--- OUTSIDE RECORDS SUMMARY | 2024-03-10 18:22 | XMS_ITS | Encounter Summary ---
Author Organization [place] Address [address] [place] [address] Care Team Providers Care Assistant Golf Coach Name Role Phone Forest Guillen MD Primary Care Provider Laura Mcallister MD Unavailable Alissa Robbins MD Unavailable Salena Lund MD Unavailable No Ref-Primary, Physician Primary Care Provider Betty Pederson RD Unavailable [phone] [facility] Primary Ca re Provider Christen Murphy MD Unavailable Salena Lund MD Unavailable Salena Lund MD Unavailable Patrick Ayon DO Unavailable Patrick Ayon DO Unavailable Tarik Louie MD Unavailable Patrick Ayon DO Unavailable Loretta Ayon MD Unavailable [phone] Tarik Louie MD Unavailable Patrick Ayon DO Unavailable Cristopher Koroma MD Unavailable Tarik Louie MD Unavailable Jennifer Travis PA-C Unavailable Encounter Details Date Type Department Care Team (Late st Contact Info) Description 02/05/2020 [facility] Medical Advice [facility] [address] [place], [address] [place] [address] Ashley Mackay RN Social History Tobacco Use Types Packs/Day Years [...] documented as of this encounter Care Teams Assistant Golf Coach Relationship Specialty Start Date End Date Forest Guillen MD PCP - General Internal Medicine 02/25/17 10/08/20 No Ref-Primary, Physician PCP - General 11/08/20 07/20/21 [facility] [address] [place] [address] PCP - General 07/21/21 Laura Mcallister MD [address] [place], [place] 7[address] Assigned PCP 10/22/19 08/03/20 Alissa Robbins MD [address], [address] [address] Assigned OBGYN Provider 04/12/20 [place] [address] [place] [address] Assigned PCP 08/04/20 01/23/[address] [place] [address] Bilingual Trainer Dietitian, Registered 11/28/20 Christen Murphy MD [address] [place] [address] [place] [address] Assigned PCP 01/24/22 05/01/22 [place] [address] [place] [address] Assigned PCP 05/02/22 06/05/22 [place] [address] [place] [address] Assigned PCP 08/15/22 09/04/22 Patrick Ayon DO [address] [place] [address] 234814 Assigned PCP 09/19/22 01/10/24 Patrick Ayon DO [address] [place] [address] Referring Physician Family Medicine 09/21/22 Tarik Louie MD [address], [address] [place] [address] Allergy & Immunology 09/21/22 Patrick Ayon DO [address] [place] [address] Assigned PCP 09/05/22 09/18/22 Loretta Ayon MD [address] [place] [address] Assigned OBGYN Provider 10/24/22 Tarik Louie MD [address] [place] 65[address] Assigned Allergy Provider 11/11/23 Patrick Ayon DO [address] [place] [address] Assigned Pain Medication Provider 05/08/23 07/14/23 Cristopher Koroma MD [address] [place] [address] Assigned Surgical Provider 06/12/23 Tarik Louie MD [address] [address] Assigned Allergy Provider 12/19/22 11/10/23 Jennifer Travis PA-C [address] [facility] [place] [address] Assigned PCP 01/11/24 documented as of this encounter
--- OUTSIDE RECORDS SUMMARY | 2024-03-10 18:22 | XMS_ITS | Encounter Summary ---
Author Organization [place] Address [address] [place] [address] Care Team Providers Care Assistance Representative Name Role Phone Forest Guillen MD Primary Care Provider Laura Mcallister MD Unavailable Alissa Robbins MD Unavailable Salena Lund MD Unavailable No Ref-Primary, Physician Primary Care Provider Betty Pederson RD Unavailable [facility] Primary Ca re Provider Christen Murphy MD Unavailable Salena Lund MD Unavailable Salena Lund MD Unavailable Patrick Ayon DO Unavailable Patrick Ayon DO Unavailable Tarik Louie MD Unavailable Patrick Ayon DO Unavailable Loretta Ayon MD Unavailable [phone] Tarik Louie MD Unavailable Patrick Ayon DO Unavailable Cristopher Koroma MD Unavailable Tarik Louie MD Unavailable Jennifer Travis PA-C Unavailable [phone] Encounter Details Date Type Department Care Team (Late st Contact Info) Description 10/26/2019 [facility] Medical Advice [facility] [address] [facility] [address] [place] [address] Shantal Herring RN Social History Tobacco Use Types Packs/Day [...] documented as of this encounter Care Teams Assistance Representative Relationship Specialty Start Date End Date Forest Guillen MD PCP - General Internal Medicine 02/25/17 10/08/20 No Ref-Primary, Physician PCP - General 11/08/20 07/20/21 [facility] [address] [place] [address] PCP - General 07/21/21 Laura Mcallister MD 3033 [place] [address] Assigned PCP 10/22/19 08/03/20 Alissa Robbins MD [address] [facility], [address] [address] Assigned OBGYN Provider 04/12/20 [place] [address] [place] [address] Assigned PCP 08/04/20 01/23/[address] [place] [address] Clinic Scheduler Dietitian, Registered 11/28/20 Christen Murphy MD [address] [place] [address] [place] [address] Assigned PCP 01/24/22 05/01/22 [place] [address] [place] [address] Assigned PCP 05/02/22 06/05/22 [place] [address] [place] [address] Assigned PCP 08/15/22 09/04/22 Patrick Ayon DO [address] [place] [address] Assigned PCP 09/19/22 01/10/24 Patrick Ayon DO [address] [place] [address] Referring Physician Family Medicine 09/21/22 Tarik Louie MD [address], [address] [place] 4[address] Allergy & Immunology 09/21/22 Patrick Ayon DO [address] [place], [place] [address] Assigned PCP 09/05/22 09/18/22 Loretta Ayon MD [address] [place] [address] Assigned OBGYN Provider 10/24/22 Tarik Louie MD [address] [address] Assigned Allergy Provider 11/11/23 Patrick Ayon DO [address] [place], [place] 932[address] Assigned Pain Medication Provider 05/08/23 07/14/23 Cristopher Koroma MD [address] [place] [address] Assigned Surgical Provider 06/12/23 Tarik Louie MD [address] [address] Assigned Allergy Provider 12/19/22 11/10/23 Jennifer Travis PA-C [address] [facility] [place] [address] Assigned PCP 01/11/24 documented as of this encounter
--- OUTSIDE RECORDS SUMMARY | 2024-03-10 18:22 | XMS_ITS | Encounter Summary ---
Author Organization [place] Address [address] [place] [address] Care Team Providers Care Sign Painter Name Role Phone Forest Guillen MD Primary Care Provider Forest Guillen MD Unavailable Laura Mcallister MD Unavailable [phone] Forest Guillen MD Unavailable [phone] Laura Mcallister MD Unavailable [phone] Alissa Robbins MD Unavailable Salena Lund MD Unavailable No Ref-Primary, Physician Primary Care Provider Betty Pederson RD Unavailable [facility] Primary Ca re Provider Christen Murphy MD Unavailable [phone] Salena Lund MD Unavailable Salena Lund MD Unavailable Patrick Ayon DO Unavailable [phone] Patrick Ayon DO Unavailable [phone] Tarik Louie MD Unavailable Patrick Ayon DO Unavailable [phone] Loretta Ayon MD Unavailable [phone] Tarik Louie MD Unavailable Gabo Patrick Ata [place] Unavailable [phone] Cristopher Koroma MD Unavailable Tarik Louie MD Unavailable Jennifer Travis PA-C Unavailable [phone] Encounter Details Date Type Department Care Team (Late st Contact Info) Description 08/09/2019 [facility] [address] [facility] [address] [place] [address] Barbara Darden APRN [facility] [address] [address], [facility] [address] [place] [address] Social History Tobacco Use Types Packs/Day Years [...] documented as of this encounter Care Teams Sign Painter Relationship Specialty Start Date End Date Forest Guillen MD PCP - General Internal Medicine 02/25/17 10/08/20 No Ref-Primary, Physician PCP - General 11/08/20 07/20/21 Clinic - [facility] [address] [place] [address] PCP - General 07/21/21 Forest Guillen MD [address] [facility] [place] [address] Assigned PCP 07/09/19 08/26/19 Laura Mcallister MD 3033 [place] [address] Assigned PCP 08/27/19 10/07/19 Forest Guillen MD [address] [facility] [place] [address] Assigned PCP 10/08/19 10/21/19 Laura Mcallister MD [address] [place] [address] Assigned PCP 10/22/19 08/03/20 Alissa Robbins MD [address] [facility], [address] [address] Assigned OBGYN Provider 04/12/20 [place] [address] [place] [address] Assigned PCP 08/04/20 01/23/[address] [facility] [place] [address] Drapery And Upholstery Estimator Dietitian, Registered 11/28/20 Christen Murphy MD [address] [facility] [place] [address] Assigned PCP 01/24/22 05/01/22 [place] [address] [place], [place] 3645[address] Assigned PCP 05/02/22 06/05/22 [place] [address] [place], [place] 2768[address] Assigned PCP 08/15/22 09/04/22 Patrick Ayon DO [address] [place] [address] Assigned PCP 09/19/22 01/10/24 Patrick Ayon DO [address] [place] [address] Referring Physician Family Medicine 09/21/22 Tarik Louie MD [address], [facility] 200 [place], [place] [address] Allergy & Immunology 09/21/22 Patrick Ayon DO [address] [place] [address] Assigned PCP 09/05/22 09/18/22 Loretta Ayon MD [address] [place] [address] Assigned OBGYN Provider 10/24/22 Tarik Louie MD [address] [place] [address] Assigned Allergy Provider 11/11/23 Patrick Ayon DO [address] [place] [address] Assigned Pain Medication Provider 05/08/23 07/14/23 Cristopher Koroma MD [address] [place], [place] 127[address] Assigned Surgical Provider 06/12/23 Tarik Louie MD [address] [place] [address] Assigned Allergy Provider 12/19/22 11/10/23 Jennifer Travis PA-C [address] [facility] [place] [address] Assigned PCP 01/11/24 documented as of this encounter
--- OUTSIDE RECORDS SUMMARY | 2024-03-10 18:22 | XMS_ITS | Clinical Summary ---
Author Organization [facility] Address [address], [place] [address] Care Team Providers Care Typewriter Tester Name Role Phone Unavailable Primary Care Provider Unavailabl e Source Comments You are receiving this document as you are listed as the primary care provider,follow-up provider, or the patient has been referred to you for consultation.This is in compliance with the Medicare and[facility] EHR Incentive Program,which states Providers who transition their patient to another setting of careor provider of care or refers their patient to another provider of care shouldprovide summary care record for each transition of care or referral. [facility] Allergies No known active allergies Medications Medication Sig Dispensed Refills Start Date End Date Status fexofenadine (SHARRON) 180 MG tablet Take 1 Tablet (180 mg) by mouth. Active lidocaine (XYLOCAINE) 5 % ointment Apply topically. 03/31/2023 Active [place]-3 Fatty Acids (FISH OIL) 1000 MG capsule Take 2 Capsules (2,000 mg) by mouth. Active 27-0.8 MG tablet Take 1 Tablet by mouth daily. Active cephalexin (KEFLEX) 250 MG capsule Take 1 Capsule (250 mg) by mouth three times a day. Active Active Problems No known active problems Social History Tobacco Use Types Packs/Day Years Used Date Smoking Tobacco: Never Smokeless Tobacco: Never Tobacco Cessation:Counseling Given: Not Answered Sex and Gender Information Value Date Recorded Sex Assigned at Not on file Gender Identity Not on file Sexual Orientation Not on file Last Filed Vital Signs Vital Sign Reading Time Taken Comments Blood Pressure 112/68 04/23/2023 9:37 AM CDT Pulse 70 04/23/2023 9:37 AM CDT Temperature 37.1 ??C (98.8 ??F) 04/23/2023 9:37 AM CD T Respiratory Rate 16 04/23/2023 9:37 AM CDT Oxygen Saturation 100% 04/23/2023 9:37 AM CDT Inhaled Oxygen Concentration - - Weight - - Height - - Body Mass Index - - Plan of Treatment Health Maintenance Due Date Last Done Comments Cervical Cancer Screening Due 1991 Hep C Screening (Preventive Services) 1991 MTM Covered 1991 HIV Screening (Preventive Services) 2007 HPV Vaccine (2 - 3-dose series) 10/04/2007 09/06/2007 HepA (2 of 2 - 2-dose series) 03/08/2008 09/06/2007 Adult Preventive Visit 08/30/2009 HepB (1) 08/30/2010 COVID-19 Vaccine (2 - season) 2024 06/19/2021 Influenza (#1) 2024 03/13/2011 DTaP/Tdap/Td (9 - Tdap) 04/14/2032 04/14/20, 06/17/2016, 10/20/2011, Additional history exists Zoster/Shingles (1 of 2) 08/30/2041 IPV (Polio) Completed 06/27/1997, 12/20, 02/13/1992, Additional history exists MCV4 Aged Out 09/06/2007 No longer eligi ble based on patient's age to complete this topic Hib Aged Out No longer eligi ble based on patient's age to complete this topic Pneumococcal Aged Out No longer eligi ble based on patient's age to complete this topic
--- OUTSIDE RECORDS SUMMARY | 2024-03-10 18:22 | XMS_ITS ---
Author Organization [facility] Address [address] [place] [address] Care Team Providers Care Stained Glass Glazier Name Role Phone Betty Pederson RD Unavailable [facility] Provider Patrick Ayon DO Unavailable Tarik Louie MD Unavailable Loretta Ayno MD Unavailable [phone] Tarik Louie MD Unavailable Cristopher Koroma MD Unavailable Jennifer Travis PA-C Unavailable Diabetes Self-Management Education Status:Enrolled (Active) Start date:11/28/2020 Enrollment date:11/28/2020 Case Team Name Relationship Phone Betty Pederson RD Psychological Aide(Responsib le Staff) [phone] Continued Care and Services Coordination
--- OUTSIDE RECORDS SUMMARY | 2024-03-10 18:22 | XMS_ITS | Encounter Summary ---
Author Organization [facility] Address [address] [place] [id number] Care Team Providers Care Utility Person Name Role Phone Forest Guillen MD Primary Care Provider Laura Mcallister MD Unavailable [phone] Alissa Robbins MD Unavailable Salena Lund MD Unavailable No Ref-Primary, Physician Primary Care Provider Betty Pederson RD Unavailable [facility] Primary Ca re Provider Christen Murphy MD Unavailable [phone] Salena Lund MD Unavailable Salena Lund MD Unavailable Patrick Ayon DO Unavailable Patrick Ayon DO Unavailable Tarik Louie MD Unavailable Patrick Ayon DO Unavailable Loretta Ayon MD Unavailable [phone] Tarik Louie MD Unavailable Patrick Ayon DO Unavailable Cristopher Koroma MD Unavailable Tarik Louie MD Unavailable Jennifer Travis PA-C Unavailable Encounter Details Date Type Department Care Team (Late st Contact Info) Description 07/23/2020 [facility] [id number] [place] [phone] Skylar Sharpe Social History Tobacco Use Types Packs/Day Years [...] have Coronavirus / COVID-19? No / Unsure 07/23/2020 2:39 PM [employer] [employer] documented as of this encounter Plan of Treatment Not on file documented as of this encounter Visit Diagnoses Not on filedocumented in this encounter Additional Health Concerns Infection Onset Date Last Indicated Resolved Time Rule Out COVID-19 02/11/2022 02/11/2022 02/12/2022 11:16 AM CDT Assessment Noted Time PHQ-9 Depression Total Score: 4 02/06/20 20 7:07 AM CDT documented as of this encounter Care Teams Utility Person Relationship Specialty Start Date End Date Forest Guillen MD PCP - General Internal Medicine 02/25/17 10/08/20 No Ref-Primary, Physician PCP - General 11/08/20 07/20/21 [facility] [id number] [place] [id number] PCP - General 07/21/21 Laura Mcallister MD [address] [facility] [place] [address] Assigned PCP 10/22/19 08/03/20 Alissa Robbins MD [address] [facility] [address] [place] [address] Assigned OBGYN Provider 04/12/20 [place] [address] [place] [address] Assigned PCP 08/04/20 01/23/[address] [place] [address] Shirt Line Operator Dietitian, Registered 11/28/20 Christen Murphy MD [facility] [facility] [place] [address] Assigned PCP 01/24/22 05/01/22 [place] [address] [place] [address] Assigned PCP 05/02/22 06/05/22 [place] [address] [place] [address] Assigned PCP 08/15/22 09/04/22 Patrick Ayon DO [address] [place] [address] Assigned PCP 09/19/22 01/10/24 Patrick Ayon DO [address] [place] [address] Referring Physician Family Medicine 09/21/22 Tarik Louie MD [address], [address] [place] [address] Allergy & Immunology 09/21/22 Patrick Ayon DO [address] [place], [place] [address] Assigned PCP 09/05/22 09/18/22 Loretta Ayon MD [address] [place], [place] [address] Assigned OBGYN Provider 10/24/22 Tarik Louie MD [address] [place] [address] Assigned Allergy Provider 11/11/23 Patrick Ayon DO [address] [place] [address] Assigned Pain Medication Provider 05/08/23 07/14/23 Cristopher Koroma MD [address] [place] [address] Assigned Surgical Provider 06/12/23 Tarik Louie MD [address] [place] [address] Assigned Allergy Provider 12/19/22 11/10/23 Jennifer Travis PA-C [address] [facility] [place] [place] [address] Assigned PCP 01/11/24 documented as of this encounter
== END 2024-03-10 18:31 | disposition home or self-care (01) ==
LOC: ED 18:19
PROVIDERS: Emergency Provider Emergency Medicine Emergency Medical Services
DX: U07.1 COVID-19 (principal)
CPT/HCPCS: 99282; 99283; 99284